=== PATIENT | female | born 1975 | race Caucasian/White ===

== ENCOUNTER 2019-12-28 17:00 | Emergency (ER) | payer BC, SELFPAY ==
[2019-12-28 17:07] VITALS: BMI 282.2
[2019-12-28 17:10] VITALS: BP 174/99; PULSE 146; RESP 20; TEMP 36.7; O2SAT 100
--- NOTE | 2019-12-28 17:11 | XR_ITS ---
WS: [id number] XR chest 1V portable [id number] REASON FOR EXAM: SOB FINDINGS: Comparisons were made to 07/23/2017. The heart is normal. The lung allen are well aerated. No pneumonia, pleural effusion, pulmonary edema, pneumothorax, or m ass effect. The hilum and apices normal. No osseous abnormalities. XR/XR chest 1V portable [id number] IMPRESSION: Negative chest unchanged since 07/23/2017
--- NOTE | 2019-12-28 17:20 | W.ED.SOB ---
HPI - SOB/Dyspnea General: Chief Complaint: Shortness of Breath/Dyspnea Stated Complaint: high hr/sob Time Seen by Provider: 12/28/19 17:11 History of Present Illness: HPI Narrative: Patient is a 44-year-old female comes to the ED with shortness of breath and elevated heart rate. Past medical history of hypothyroidism. Patient states that all throughout today whenever she gets up and moves around she feels her heart racing and then has also had some moments of shortness of breath during this time. When she stopped and rested the shortness of breath would go away but the elevated heart rate would still be there and then slowly decrease. She also says during the times her heart rate elevates she experiences some mild chest discomfort. Patient says that her normal resting heart rate is usually in the 70 beats per minute range. Denies cough and has no history of blood clots. Patient states she is has no known heart issues. Patient says she has had a panic attack in the past before, but this does not feel anything like that. She also says she currently is not dealing with any stress or worries during this time to cause any anxiety or panic attack. Associated symptoms: Reports chest pain (mild discomfort) and palpitations; Deny abdominal pain, fever(s), nausea, orthopnea or vomiting Review of Systems Const: Denies: fever, chills or fatigue Eyes: Denies: change in vision or eye discomfort ENMT: Denies: throat pain, painful swallowing, nasal discharge or nasal congestion Card: Reports: chest pain (mild discomfort), palpitations and shortness of breath on exertion; Denies: edema, swelling of feet/ankles or shortness of breath when lying down Resp: Reports: shortness of breath (on exertion then improves when she rests.); Denies: productive cough or non-productive cough GI: Denies: abdominal pain, nausea, vomiting, diarrhea, constipation or blood in stool : Denies: flank pain, painful urination or blood in urine Musc: Denies: neck pain, back pain or extremity swelling Skin/Breast: Denies: rash or new lesion Neuro: Denies: headache, numbness in extremities or weakness in extremities PFS ED PFSH: Medical History Breast swelling (05/15/19) Patient reporting an increase in left breast size compared to in the past. States noticed due to broad and not fitting appropriately. Denied feeling any masses. Denied pain or tenderness. Denied injuries to breast. Had normal mammogram in 07/2018. Based on exam today, left breast appears to be slightly larger than right. No masses, tenderness, skin changes noted on exam. Discussed with patient that this may be normal changes that can happen over time. Discussed with her this is unlikely to be a worrisome change. However, I do recommend that she continue to monitor this and if she continues to notice the left breast enlarging, she needs to return for another evaluation. -Patient due for wellness visit in July. We'll reassess at that time. Hypothyroidism (~2013) Surgical History H/O section (08/05/08) Performed by Dr. Abdi at [facility] in [place], [place]. Had hemorrhage treated with exploratory laparotomy with ligation of vessels and then return to the OR for hysterectomy due to continued bleeding. H/O exploratory laparotomy (08/05/08) With Uterine Vessel Ligation Diagnosis: Postoperative hemorrhage with broad ligament hematoma. Performed by Dr. Smalls at [facility] in [place], [place]. History of section (09/20/02) 09/20/2002 Comments: Diagnosis: Cephalopelvic disproportion. Performed in [place], [place] History of hysterectomy (08/05/18) Post hysterectomy. Diagnosis: hemorrhage, Broad ligament hematoma, Uterine vessel laceration. Performed by Dr. Smalls at [facility] in [place], [place]. Family History Mother Squamous cell carcinoma Grandmother Lymphoma MATERNAL Heart disease PATERNAL Hypertension PATERNAL Family history of thyroid problem PATERNAL Hypercholesteremia PATERNAL Grandfather Prostate cancer MATERNAL Father Heart disease Hypertension Social History Smoking and tobacco status: never smoked Physical Exam Const: COMMON NORMALS: no apparent distress, oriented x3, healthy appearing and alert GENERAL APPEARANCE: cooperative and comfortable HENMT: COMMON NORMALS: normocephalic HEAD & SCALP: normocephalic MOUTH: oral and palatal mucosa normal THROAT: posterior oropharynx normal and uvula midline Eye: COMMON NORMALS: PERRL PUPIL: Yes PERRL Neck/C-Spine: COMMON NORMALS: supple GENERAL: Yes normal visual inspection Resp: COMMON NORMALS: normal respiratory effort, no retractions, no use of accessory muscles and clear to auscultation bilaterally AUSCULTATION: clear to auscultation bilaterally Cardio: COMMON NORMALS: regular rhythm, S1 normal heart sound, S2 normal heart sound, no gallops, no clicks, no murmurs and peripheral pulses 2+ throughout RATE: tachycardic RHYTHM: regular rhythm HEART SOUNDS: S1 normal and S2 normal PERIPHERAL PULSES: pulses 2+ throughout GI: COMMON NORMALS: normal to inspection, nondistended, normoactive bowel sounds, soft to palpation, non-tender and no masses PALPATION: Yes soft : COMMON NORMALS: Yes no CVA tenderness BLADDER/KIDNEY EXAM: Yes no CVA tenderness Back/Pelvis: COMMON NORMALS: no CVA tenderness Extremity: COMMON NORMALS: normal to inspection and no pedal edema Neuro: COMMON NORMALS: oriented x3 and moves all extremities SENSORIUM/ORIENTATION: Yes alert Skin: COMMON NORMALS: no rashes or lesions noted GENERAL SKIN EXAM: no rashes or lesions noted and dry skin Course Vital Signs: Vital signs: Vital Signs Temperature 98.0 F 12/28/19 17:10 Pulse Rate 78 12/28/19 21:07 Respiratory Rate 16 12/28/19 21:07 Blood Pressure 132/78 12/28/19 21:07 Pulse Oximetry 99 12/28/19 21:07 MDM - SOB/Dyspnea MDM Narrative: Medical decision making narrative: Patient is a 44-year-old female who comes to the ED with elevated heart rate, mild chest discomfort and some shortness of breath. Patient's heart rate while in the ED would sit in the 110 bpm range and then elevate to 120 to 140 bpm range when she would get up and walk to the bathroom. EKG showed sinus tachycardia, with no ST elevation or depression. Troponins were negative. TSH 2.17. Chest x-ray showed no acute findings. CBC and CMP were unremarkable. D-dimer was elevated to 20. CTA of chest was performed and showed no PE or any other acute findings. Patient was given a dose of IV metoprolol while here in the ED and her heart rate decreased and patient started feeling more comfortable. Patient diagnosed with sinus tachycardia. Before discharge patient's heart rate went back to her normal range and was at 78 bpm. Patient was feeling better and not having any symptoms. Patient was sent home with prescription for metoprolol and cardiology referral was placed with case management. Patient was told if she is having any other symptoms to return to ED for reevaluation. Patient understood and agreed with plan. Dr. Johns reviewed this case and helped with some clinical decision making. Lab Data: Attestation: I reviewed the patient's lab results. Labs: Lab Results 12/28/19 12/28/19 12/28/19 Range/Units 17:19 17:19 17:19 WBC (4.0-10.0) 10^3/ uL RBC (4.1-5.3) 10^6/u L Hgb (11.5-15.3) g/dL Hct (37.0-47.0) % MCV (81-99) fL MCH (28.0-34.0) pg MCHC (30.0-36.0) g/dL RDW (12.1-15.1) % Plt Count (130-400) 10^3/c mm MPV (7.4-10.4) fL Neut % (Auto) % Lymph % (Auto) % Grand % (Auto) % Eos % (Auto) % Baso % (Auto) % Neut # (Auto) (1.8-7.7) 10^3/u L Lymph # (Auto) (0.8-4.8) 10^3/u L Grand # (Auto) (0.2-0.9) 10^3/u L Eos # (Auto) (0.0-0.8) 10^3/u L Baso # (Auto) (0.0-0.1) 10^3/u L Nucleated RBC % (a uto) % Nucleated RBCs # /100WBC D-Dimer (0-0.59) ug/mIFE U Sodium 142 (136-145) mmol/L Potassium 3.4 L (3.5-5.1) mmol/L Chloride 104 (98-107) mmol/L Carbon Dioxide 19 L (22-29) mmol/L Anion Gap 22.4 H (5-19) BUN 11 (6-20) mg/dL Creatinine 0.8 (0.5-0.9) mg/dL GFR Calculation 78.7 L (90-130) mL/min Glucose 113 (65-115) mg/dL Calculated Osmolal ity 291 (285-295) mOsm/k g Calcium 9.6 (8.5-10.5) mg/dL Total Bilirubin 0.3 (0.15-1.2) mg/dL AST 26 (0-32) U/L ALT 37 H (0-33) U/L Alkaline Phosphata se 61 (35-105) IU/L Troponin T Baselin e < 6 (0-10) ng/mL Troponin T 120 Min [place] (0-10) ng/mL Delta Troponin T (0-10) ABS# Total Protein 8.0 (6.6-8.7) g/dL Albumin 5.1 (3.5-5.2) g/dL Globulin 2.9 (1.3-4.6) g/dL TSH 2.17 (0.27-4.20) uIU/ mL HCG, Qual Negative (Negative) Urine Color (Yellow) Urine Appearance (CLEAR) Urine pH (5-7) Ur Specific Gravit y (1.005-1.030) Urine Protein (Negative) Urine Glucose (UA) (Normal) Urine Ketones (Negative) Urine Blood (Negative) Urine Nitrate (Negative) Urine Bilirubin (NEGATIVE) Urine Urobilinogen (Negative) mg/dL Ur Leukocyte Jeri ase (Negative) Urine RBC (0-2) /hpf Urine WBC (0-5) /hpf Ur Squamous Epith Cells (0-5) Urine Bacteria (NONE) 12/28/19 12/28/19 12/28/19 Range/Units 17:19 17:50 18:18 WBC 8.4 (4.0-10.0) 10^3/ uL RBC 5.21 (4.1-5.3) 10^6/u L Hgb 15.5 H (11.5-15.3) g/dL Hct 47.2 H (37.0-47.0) % MCV 90.6 (81-99) fL MCH 29.8 (28.0-34.0) pg MCHC 32.8 (30.0-36.0) g/dL RDW 11.9 L (12.1-15.1) % Plt Count 301 (130-400) 10^3/c mm MPV 9.7 (7.4-10.4) fL Neut % (Auto) 73.6 % Lymph % (Auto) 18.6 % Grand % (Auto) 6.2 % Eos % (Auto) 0.6 % Baso % (Auto) 0.5 % Neut # (Auto) 6.2 (1.8-7.7) 10^3/u L Lymph # (Auto) 1.6 (0.8-4.8) 10^3/u L Grand # (Auto) 0.5 (0.2-0.9) 10^3/u L Eos # (Auto) 0.1 (0.0-0.8) 10^3/u L Baso # (Auto) 0.0 (0.0-0.1) 10^3/u L Nucleated RBC % (a uto) 0 % Nucleated RBCs # 0.0 /100WBC D-Dimer >= 20.00 H (0-0.59) ug/mIFE U Sodium (136-145) mmol/L Potassium (3.5-5.1) mmol/L Chloride (98-107) mmol/L Carbon Dioxide (22-29) mmol/L Anion Gap (5-19) BUN (6-20) mg/dL Creatinine (0.5-0.9) mg/dL GFR Calculation (90-130) mL/min Glucose (65-115) mg/dL Calculated Osmolal ity (285-295) mOsm/k g Calcium (8.5-10.5) mg/dL Total Bilirubin (0.15-1.2) mg/dL AST (0-32) U/L ALT (0-33) U/L Alkaline Phosphata se (35-105) IU/L Troponin T Baselin e (0-10) ng/mL Troponin T 120 Min [place] (0-10) ng/mL Delta Troponin T (0-10) ABS# Total Protein (6.6-8.7) g/dL Albumin (3.5-5.2) g/dL Globulin (1.3-4.6) g/dL TSH (0.27-4.20) uIU/ mL HCG, Qual (Negative) Urine Color Yellow (Yellow) Urine Appearance Clear (CLEAR) Urine pH 7 (5-7) Ur Specific Gravit y 1.005 (1.005-1.030) Urine Protein Neg (Negative) Urine Glucose (UA) Norm (Normal) Urine Ketones Negative (Negative) Urine Blood Neg (Negative) Urine Nitrate Negative (Negative) Urine Bilirubin Neg (NEGATIVE) Urine Urobilinogen Norm (Negative) mg/dL Ur Leukocyte Jeri ase Negative (Negative) Urine RBC 0-4 H (0-2) /hpf Urine WBC 0-4 H (0-5) /hpf Ur Squamous Epith Cells 0-4 H (0-5) Urine Bacteria Trace (NONE) 12/28/19 Range/Units 19:00 WBC (4.0-10.0) 10^3/ uL RBC (4.1-5.3) 10^6/u L Hgb (11.5-15.3) g/dL Hct (37.0-47.0) % MCV (81-99) fL MCH (28.0-34.0) pg MCHC (30.0-36.0) g/dL RDW (12.1-15.1) % Plt Count (130-400) 10^3/c mm MPV (7.4-10.4) fL Neut % (Auto) % Lymph % (Auto) % Grand % (Auto) % Eos % (Auto) % Baso % (Auto) % Neut # (Auto) (1.8-7.7) 10^3/u L Lymph # (Auto) (0.8-4.8) 10^3/u L Grand # (Auto) (0.2-0.9) 10^3/u L Eos # (Auto) (0.0-0.8) 10^3/u L Baso # (Auto) (0.0-0.1) 10^3/u L Nucleated RBC % (a uto) % Nucleated RBCs # /100WBC D-Dimer (0-0.59) ug/mIFE U Sodium (136-145) mmol/L Potassium (3.5-5.1) mmol/L Chloride (98-107) mmol/L Carbon Dioxide (22-29) mmol/L Anion Gap (5-19) BUN (6-20) mg/dL Creatinine (0.5-0.9) mg/dL GFR Calculation (90-130) mL/min Glucose (65-115) mg/dL Calculated Osmolal ity (285-295) mOsm/k g Calcium (8.5-10.5) mg/dL Total Bilirubin (0.15-1.2) mg/dL AST (0-32) U/L ALT (0-33) U/L Alkaline Phosphata se (35-105) IU/L Troponin T Baselin e (0-10) ng/mL Troponin T 120 Min [place] 6.78 (0-10) ng/mL Delta Troponin T 0.29828 (0-10) ABS# Total Protein (6.6-8.7) g/dL Albumin (3.5-5.2) g/dL Globulin (1.3-4.6) g/dL TSH (0.27-4.20) uIU/ mL HCG, Qual (Negative) Urine Color (Yellow) Urine Appearance (CLEAR) Urine pH (5-7) Ur Specific Gravit y (1.005-1.030) Urine Protein (Negative) Urine Glucose (UA) (Normal) Urine Ketones (Negative) Urine Blood (Negative) Urine Nitrate (Negative) Urine Bilirubin (NEGATIVE) Urine Urobilinogen (Negative) mg/dL Ur Leukocyte Jeri ase (Negative) Urine RBC (0-2) /hpf Urine WBC (0-5) /hpf Ur Squamous Epith Cells (0-5) Urine Bacteria (NONE) Imaging Data^: CXR: Attestation: I personally reviewed and interpreted this imaging study as follows: My impression: No acute findings. Pending final radiology report. CT Chest: Attestation: I personally reviewed and interpreted this imaging study as follows: Radiologist's impression: [address] [address] [address] Scan Report Signed Patient: Lisa Rebolledo Unit #: [id number] : 1975 Age/Sex: 44 / F ADM Date: 12/28/19 Loc: ER Room/Bed: Attending Dr: Ordering Provider/Ordering MD: Yayo Darnell Date of Service: 12/28/19 Procedure(s): CT angio chest PE protcl [id number] Accession Number(s): [id number] Report Number: [id number] PROCEDURE INFORMATION: Exam: CT Angiography Chest With Contrast Exam date and time: 12/28/2019 7:04 PM Age: 44 years old Clinical indication: Shortness of breath; Patient HX: C/O sudden onset SOB w rapid hr; Additional info: SOB and tachycardia TECHNIQUE: Imaging protocol: Computed tomographic angiography of the chest with intravenous contrast. 3D rendering: MIP and/or 3D reconstructed images were created by the technologist. Radiation optimization: All CT scans at this facility use at least one of these dose optimization techniques: automated exposure control; mA and/or kV adjustment per patient size (includes targeted exams where dose is matched to clinical indication); or iterative reconstruction. Contrast material: OMNI 350; Contrast volume: 95 ml; Contrast route: 20G; COMPARISON: CT chest w con* [id number] 09/06/2018 8:52 AM FINDINGS: There are degenerative changes of the spine. There is minimal dependent atelectasis. There is no focal consolidation. There is no pleural effusion. There is no pneumothorax. There is a calcified granuloma within the right upper lobe. There are no suspicious pulmonary nodules. The central airways are normal in caliber. The thyroid gland is unremarkable. There is no axillary adenopathy. There is no mediastinal adenopathy. There is no hilar adenopathy. Interrogation of the pulmonary arteries in multiple planes shows no evidence for pulmonary embolism. The aorta is normal in caliber with no evidence for aneurysm or dissection. The heart is normal in size. There is no evidence for right heart failure. The upper abdominal structures are unremarkable. CT/CT angio chest PE protcl [id number] IMPRESSION: 1. No evidence for pulmonary embolism. 2. No focal infiltrates. Radiation Dose CTDIVOL = (mGy): DLP = 541.57 (mGy-cm) Dictated By: Italo Conrad MD Signed By: Italo Conrad MD Signed Date/Time: 12/28/191958 DD/ 56 EKG Data^: EKG 1: Attestation: I personally reviewed and interpreted this EKG as follows: EKG Interpretation Date: 12/28/19 Interpretation: Sinus tachycardia. Ventricular rate of 117 bpm, P waves present, no ST segment elevation pr depression seen. Discharge Plan Discharge Patient Disposition: Home, Self-Care Clinical Impression: Sinus tachycardia Condition: Stable Prescriptions: New metoprolol succinate 25 mg tablet extended release 24 hr 25 mg PO DAILY Qty: 30 RF: 0 No Action liothyronine 5 mcg tablet 2.5 mcg PO QDAY RF: 0 ibuprofen [Advil] 200 mg tablet 800 mg PO Q6H PRNRF: 0 Discharge Orders: Discharge Order (Routine); Ordered 12/28/19 Ordered By: Yayo Darnell Referrals: Mack Rust MD [Primary Care Provider] - Discharge Diet: Regular Discharge Activity: Increase activity as tolerated Activity Restrictions/Additional Instructions: [facility] cardiology office should be contacting you in the next several days to set up an appointment. Take the metoprolol as prescribed. If you start having any new chest pain or shortness of breath return to the ED for reevaluation. Discharge Date/Time: 12/28/19 21:09 Coding Level of Care Code ED Stage Set Up Worker for Ina Fwjakbu Exam Comprehensive
[2019-12-28 17:48] LABS: HCG, Serum Qual Negative (Negative)
[2019-12-28 17:54] LABS: Basophils % 0.5 %; Eosinophils # 0.1 10^3/uL (0.0-0.8); Eosinophils % 0.6 %; Hematocrit 47.2 % (37.0-47.0); Hemoglobin 15.5 g/dL (11.5-15.3); Lymphocytes # 1.6 10^3/uL (0.8-4.8); Lymphocytes % 18.6 %; Mean Corpuscular HGB Conc 32.8 g/dL (30.0-36.0); Mean Corpuscular Hemoglobin 29.8 pg (28.0-34.0); Mean Corpuscular Volume 90.6 fL (81-99); Mean Platelet Volume 9.7 fL (7.4-10.4); Monocytes # 0.5 10^3/uL (0.2-0.9); Monocytes % 6.2 %; Neutrophils # 6.2 10^3/uL (1.8-7.7); Neutrophils % 73.6 %; Nucleated Red Blood Cells % 0 %; Platelet Count 301 10^3/cmm (130-400); Red Blood Count 5.21 10^6/uL (4.1-5.3); Red Cell Distribution Width 11.9 % (12.1-15.1); White Blood Count 8.4 10^3/uL (4.0-10.0)
[2019-12-28 18:01] LABS: Alanine Aminotransferase 37 U/L (0-33); Albumin Level 5.1 g/dL (3.5-5.2); Alkaline Phosphatase 61 IU/L (35-105); Anion Gap 22.4 (5-19); Aspartate Amino Transferase 26 U/L (0-32); Blood Urea Nitrogen 11 mg/dL (6-20); Calcium 9.6 mg/dL (8.5-10.5); Carbon Dioxide 19 mmol/L (22-29); Chloride 104 mmol/L (98-107); Globulin 2.9 g/dL (1.3-4.6); Glomerular Filtration Rate 78.7 mL/min (90-130); Glucose 113 mg/dL (65-115); Osmolality Calculated 291 mOsm/kg (285-295); Potassium 3.4 mmol/L (3.5-5.1); Sodium 142 mmol/L (136-145); Thyroid Stimulating Hormone 2.17 uIU/mL (0.27-4.20); Total Bilirubin 0.3 mg/dL (0.15-1.2)
[2019-12-28 18:22] LABS: Troponin(5th) Baseline < 6 ng/mL (0-10)
[2019-12-28 18:39] VITALS: BP 166/99; PULSE 138; RESP 16; O2SAT 99
--- NOTE | 2019-12-28 18:46 | CTR_ITS ---
PROCEDURE INFORMATION: Exam: CT Angiography Chest With Contrast Exam date and time: 12/28/2019 7:04 PM Age: 44 years old Clinical indication: Shortness of breath; Patient HX: C/O sudden onset SOB w rapid hr; Additional info: SOB and tachycardia TECHNIQUE: Imaging protocol: Computed tomographic angiography of the chest with intravenous contrast. 3D rendering: MIP and/or 3D reconstructed images were created by the technologist. Radiation optimization: All CT scans at this facility use at least one of these dose optimization techniques: automated exposure control; mA and/or kV adjustment per patient size (includes targeted exams where dose is matched to clinical indication); or iterative reconstruction. Contrast material: OMNI 350; Contrast volume: 95 ml; Contrast route: 20G; COMPARISON: CT chest w con* [id number] 09/06/2018 8:52 AM FINDINGS: There are degenerative changes of the spine. There is minimal dependent atelectasis. There is no focal consolidation. There is no pleural effusion. There is no pneumothorax. There is a calcified granuloma within the right upper lobe. There are no suspicious pulmonary nodules. The central airways are normal in caliber. The thyroid gland is unremarkable. There is no axillary adenopathy. There is no mediastinal adenopathy. There is no hilar adenopathy. Interrogation of the pulmonary arteries in multiple planes shows no evidence for pulmonary embolism. The aorta is normal in caliber with no evidence for aneurysm or dissection. The heart is normal in size. There is no evidence for right heart failure. The upper abdominal structures are unremarkable. CT/CT angio chest PE protcl [id number] IMPRESSION: 1. No evidence for pulmonary embolism. 2. No focal infiltrates. Radiation Dose CTDIVOL = (mGy): DLP = 541.57 (mGy-cm)
[2019-12-28 19:03] LABS: Bilirubin Urine Neg (NEGATIVE); Blood Urine Neg (Negative); Glucose Urine UA Norm (Normal); Ketones Urine Negative (Negative); Leukocyte Esterase Urine Negative (Negative); Nitrate Urine Negative (Negative); Protein Urine Neg (Negative); Specific Gravity, Urine 1.005 (1.005-1.030); Urine Appearance Clear (CLEAR); Urine Color Yellow (Yellow); Urobilinogen Urine Norm (Negative); pH Urine 7 (5-7)
[2019-12-28] MEDS: sodium chloride 0.9% 1,000 ML 999 ML IV (19:03)
[2019-12-28] MEDS: metoprolol tartrate 1 mg/1 mL SDV 5 mL 5 MG IV (19:03)
[2019-12-28 19:08] LABS: RBC Urine 0-4 /hpf (0-2); Squamous Epithelial Cell Urine 0-4 (0-5); WBC Urine 0-4 /hpf (0-5)
[2019-12-28 19:09] LABS: Add Urine Culture? No; Bacteria Urine TRACE
--- NOTE | 2019-12-28 19:12 | ECG_ITS ---
Measurements Intervals [place] Rate: 117 P: 55 [place]: 140 QRS: 36 QRSD: 98 T: 23 QT: 351 QTc: [address] DEPRESSION [0.025+ mV ST DEPRESSION] ABNORMAL RHYTHM ECG No previous ECG available for comparison Electronically Signed On 12-29-2019 18:25:26 CDT by Damaris Blackmon M.D. [email or web address]
[2019-12-28 19:20] VITALS: BP 170/107; PULSE 108; RESP 13; O2SAT 100
[2019-12-28 19:20] LABS: D Dimer >= 20.00 ug/mIFEU (0-0.59)
[2019-12-28 19:26] LABS: Troponin 5 2HR 6.78 ng/mL (0-10); Troponin 5 2HR Delta 0.78001 ABS# (0-10)
[2019-12-28 19:30] VITALS: BP 169/109; PULSE 112; RESP 15; O2SAT 100
[2019-12-28] MEDS: iohexol 350 mg/mL 100 mL Btl IV (19:46)
[2019-12-28 20:00] VITALS: BP 145/104; PULSE 100; RESP 16; O2SAT 99
[2019-12-28 21:07] VITALS: BP 132/78; PULSE 78; RESP 16; O2SAT 99
--- NOTE | 2019-12-30 12:35 | DCPLANNER ---
solution manager had message to schedule a follow up appointment for patient with [facility]. solution manager called [facility], spoke with Evelyn, a follow up appointment was scheduled for Monday, January 06, 2020 at 10:00 with Fabiola Singh. solution manager called patient and informed patient of the scheduled appointment.
--- NOTE | 2020-01-13 14:59 | DCPLANNER ---
Patient did attend appointment scheduled for 01.06.20 with [facility].
== END 2019-12-28 21:09 | disposition home or self-care (01) ==
PROVIDERS: Emergency Provider Physician Assistant; Family Provider Family Medicine; PCP Family Medicine
DX: R00.0 Tachycardia, unspecified (principal)
CPT/HCPCS: 12345; 36415; 71045; 71275; 80053; 81001; 84443; 84484; 84703; 85025; 85378; 87040; 93005; 96361; 96374; 99283; 99284; A9270; J3490; J7030; Q9967

== ENCOUNTER 2020-03-15 06:56 | Outpatient (CLI) | payer BC, SELFPAY ==
--- NOTE | 2020-03-15 07:06 | USCV_ITS ---
Lisa Rebolledo Age: 45 Gender: F : 1975 Exam Date: 03/15/2020 07:17 Ordering Phys: Fabiola Singh Technologist: Vinicio Quinones Exam Location: [facility] [place] Indication: ABNORMAL HEART BEAT BP: 120 / 80 HR: 78 Rhythm: Sinus Technical Quality: Suboptimal MEASUREMENTS (Male / Female) Normal Values 2D ECHO LV Diastolic Diameter PLAX 4.4 cm 4.2 - 5.9 / 3.9 - 5.3 cm LV Systolic Diameter PLAX 2.5 cm IVS Diastolic Thickness 1.1 cm 0.6 - 1.0 / 0.6 - 0.9 cm IVS Systolic Thickness 1.1 cm LVPW Diastolic Thickness 1.1 cm 0.6 - 1.0 / 0.6 - 0.9 cm LVPW Systolic Thickness 1.2 cm LVOT Diameter 2.1 cm LV Ejection Fraction 2D Teich 75.7 % LV Ejection Fraction MOD 2C 51.7 % LV Ejection Fraction 2C AL 52.0 % LA Diameter 3.3 cm LA Width 3.7 cm LA Height 3.8 cm RA Width 3.3 cm RA Height 3.6 cm Aorta at Sinotubular Diameter 2.9 cm M-MODE LV Diastolic Diameter MM 4.6 cm 4.2 - 5.9 / 3.9 - 5.3 cm LV Systolic Diameter MM 3.0 cm LV Ejection Fraction MM Teich 65.9 % IVS Diastolic Thickness MM 0.9 cm 0.6 - 1.0 / 0.6 - 0.9 cm IVS Systolic Thickness MM 1.7 cm LVPW Diastolic Thickness MM 1.1 cm 0.6 - 1.0 / 0.6 - 0.9 cm LVPW Systolic Thickness MM 1.6 cm RV Diastolic Diameter MM 2.1 cm Aortic Annulus Diameter 3.0 cm LA Ao Ratio MM 1.1 MV E Point Septal Separation 0.5 cm DOPPLER AV Peak Velocity 110.0 cm/s LVOT Peak Velocity 108.0 cm/s AV Area Cont Eq vti 3.1 cm squared AV Area Cont Eq pk 3.5 cm squared MV Area PHT 5.0 cm squared Mitral E to A Ratio 1.4 MV E' Velocity 17.0 cm/s Mitral E to MV E' Ratio 6.9 Mitral E to LV E' Lateral Ratio 5.8 Mitral E to LV E' Septal Ratio 8.6 TR Peak Velocity 266.0 cm/s TR Peak Gradient 28.2 mmHg TV Peak E Velocity 89.0 cm/s Right Atrial Pressure 3.0 mmHg Pulmonary Artery Systolic Pressu 31.3 mmHg FINDINGS Left Ventricle Normal left ventricular size, systolic function and wall thickness, with no regional wall motion abnormalities. Normal left ventricular wall thickness. Normal diastolic filling pattern. Left ventricular ejection fraction is estimated at 60 %. Right Ventricle The right ventricle is normal in size and function. Right Atrium The right atrium is normal in size. Left Atrium The left atrium is normal in size. Mitral Valve Structurally normal mitral valve without significant stenosis or prolapse. There is no mitral regurgitation. Aortic Valve Structurally normal aortic valve without significant sclerosis or stenosis. There is no aortic regurgitation. Tricuspid Valve Structurally normal tricuspid valve without significant stenosis or regurgitation. Pulmonary artery systolic pressure is normal. Pulmonic Valve Structurally normal pulmonic valve without significant stenosis. There is no pulmonic regurgitation. Pericardium Normal pericardium without effusion. Aorta Normal ascending aorta dimension. CONCLUSIONS Normal transthoracic echocardiogram. No change from 11/23/2014 Dr. Maurice Gutierrez MD (Electronically Signed) Final Date: 15 March 2020 09:26 S
== END 2020-03-15 06:57 | disposition home or self-care (01) ==
PROVIDERS: Family Provider Family Medicine; PCP Family Medicine; Visit Provider Nurse Practitioner Family
DX: R00.0 Tachycardia, unspecified (principal); R00.8 Other abnormalities of heart beat
CPT/HCPCS: 93306

== ENCOUNTER 2021-05-04 14:25 | Day surgery (SDC) | payer OTHER, SELFPAY ==
[2021-05-04] VITALS (13 sets, daily range): BP systolic 102–165; BP diastolic 70–106; PULSE 90–116; RESP 9–25; TEMP 36.3–36.8; O2SAT 91–99; BMI 29.0
--- NOTE | 2021-05-04 | SCC_ITS ---
Procedure Done: 1. Cystoscopy with left retrograde ureteropyelogram 2. LEFT ureterorenoscopy with laser lithotripsy 3. LEFT ureteral stent (6 [place]ian by 26 cm double-pigtail without string) 48.8 seconds of fluoroscopic guidance, for a cumulative dose of 5.97 mGy, was provided to Dr. Butler by the radiology department. C-arm images of the abdomen were saved for the patient's permanent record. CHALOD
--- NOTE | 2021-05-04 14:39 | W.ED.BACK ---
Documented by User: DORCAS Price 05/05/21 07:06 HPI - Back Pain/Injury General: Chief Complaint: Back Pain/Injury Stated Complaint: Back Pain Time Seen by Provider: 05/04/21 14:39 Source: patient Mode of arrival: ambulatory Limitations: no limitations History of Present Illness: HPI Narrative: Patient is a nice 46-year-old female who presents to ED today with a complaint of left flank/back pain that began initially 2 to 3 days ago. She states pain came on fairly suddenly while at rest. She states pain has been fairly persistent but states today it became excruciating. She was seen at a walk-in facility earlier this morning and prescribed muscle relaxers and anti-inflammatories for presumed musculoskeletal strain. She states these medications have not helped her discomfort at all. She has no history of nephroureterolithiasis. She is not complaining of dysuria, frequency, hematuria, urgency. No fever/chills. No radicular symptoms. Does report 2 episodes of vomiting secondary to pain. MD elicited complaint: back pain Onset (ago): day(s) Timing: constant Severity: severe Similar Symptoms Previously: No Quality: sharp Location: left flank Radiation: abdomen Exacerbating factors: none Relieving factors: none Associated symptoms: Reports abdominal pain (states flank pain will sometimes radiate into abdomen), nausea and vomiting; Deny chills, dysuria, fatigue, fever(s) or urinary urgency Work related injury: No Review of Systems Const: Denies: fever(s), chills, body aches, fatigue or malaise Card: Denies: chest pain Resp: Denies: dyspnea GI: Reports: abdominal pain (states flank pain will sometimes radiate into abdomen), nausea and vomiting; Denies: hematemesis : Reports: flank pain; Denies: difficulty voiding, dysuria, urinary frequency, urinary urgency or urinary hesitancy Musc: Reports: back pain; Denies: neck pain or extremity pain Skin/Breast: Denies: rash Neuro: Denies: headache(s), numbness in extremities, weakness in extremities or sensory changes [facility] ED PFSH: Medical History (Updated 05/04/21 @ 18:53 by Jeff Butler MD) Breast swelling (05/15/19) Patient reporting an increase in left breast size compared to in the past. States noticed due to broad and not fitting appropriately. Denied feeling any masses. Denied pain or tenderness. Denied injuries to breast. Had normal mammogram in 07/2018. Based on exam today, left breast appears to be slightly larger than right. No masses, tenderness, skin changes noted on exam. Discussed with patient that this may be normal changes that can happen over time. Discussed with her this is unlikely to be a worrisome change. However, I do recommend that she continue to monitor this and if she continues to notice the left breast enlarging, she needs to return for another evaluation. -Patient due for wellness visit in July. We'll reassess at that time. Hypothyroidism (~2013) Surgical History H/O section (08/05/08) Performed by Dr. Abdi at [facility] in [place], [place]. Had hemorrhage treated with exploratory laparotomy with ligation of vessels and then return to the OR for hysterectomy due to continued bleeding. H/O exploratory laparotomy (08/05/08) With Uterine Vessel Ligation Diagnosis: Postoperative hemorrhage with broad ligament hematoma. Performed by Dr. Smalls at [facility] in [place], [place]. History of section (09/20/02) 09/20/2002 Comments: Diagnosis: Cephalopelvic disproportion. Performed in [place], [place] History of hysterectomy (08/05/18) Post hysterectomy. Diagnosis: hemorrhage, Broad ligament hematoma, Uterine vessel laceration. Performed by Dr. Smalls at [facility] in [place], [place]. Family History Mother Squamous cell carcinoma Grandmother Lymphoma MATERNAL Heart disease PATERNAL Hypertension PATERNAL Family history of thyroid problem PATERNAL Hypercholesteremia PATERNAL Grandfather Prostate cancer MATERNAL Father Heart disease Hypertension Social History Smoking and tobacco status: never smoked Physical Exam Const: COMMON NORMALS: average body habitus, patient oriented x3, no limitations, healthy appearing, alert and well nourished GENERAL APPEARANCE: cooperative and in distress (appears uncomfortable; pacing) ORIENTATION/CONSCIOUSNESS: Yes awake, Yes oriented to person, Yes oriented to place and Yes oriented to time HENMT: COMMON NORMALS: normocephalic and atraumatic HEAD & SCALP: normocephalic and atraumatic Resp: COMMON NORMALS: normal respiratory effort and clear to auscultation bilaterally AUSCULTATION: clear to auscultation bilaterally Cardio: COMMON NORMALS: regular rate and regular rhythm RATE: regular rate RHYTHM: regular rhythm GI: COMMON NORMALS: Normal to inspection, nondistended, normoactive bowel sounds present, Soft to palpation, non-tender, No hepatosplenomegaly present and no masses PALPATION: Yes Soft to palpation and Yes No hepatosplenomegaly present : OTHER: points to pain around her L CVA but palpation does not seem to directly elicit pain Neuro: COMMON NORMALS: patient oriented x3 SENSORIUM/ORIENTATION: Yes alert, Yes oriented to person, Yes oriented to place and Yes oriented to time Course ED course: Patient requiring multiple doses of pain medications and still in significant discomfort. Patient has large 8mm proximal ureter stone. Will consult with Dr. Butler but plan will most likely be to admit secondary to her pain not being manageable here. Consultations: Consultation #1: Dr. Butler-recommends admission with plan for ureter stent tomorrow (patient requesting stent tonight-he states he will check into possibility for this); states I can give toradol as this is only contraindicated for lithotripsy Vital Signs: Vital signs: Vital Signs Temperature 97.4 F L 05/04/21 21:55 Pulse Rate 115 H 05/04/21 21:19 Respiratory Rate 15 05/04/21 21:19 Blood Pressure 144/98 05/04/21 21:19 Pulse Oximetry 97 05/04/21 21:19 MDM - Back Pain/Injury Lab Data: Attestation: I reviewed the patient's lab results. Labs: Lab Results 05/04/21 05/04/21 05/04/21 Range/Units 14:54 15:23 15:23 WBC 15.6 H (4.0-10.0) 10^3/ uL RBC 4.99 (4.1-5.3) 10^6/u L Hgb 14.9 (11.5-15.3) g/dL Hct 43.4 (37.0-47.0) % MCV 87.0 (81-99) fl MCH 29.9 (28.0-34.0) pg MCHC 34.3 (30.0-36.0) g/dL RDW 11.9 L (12.1-15.1) % Plt Count 354 (130-400) 10^3/c mm MPV 9.8 (7.4-10.4) fL Neut % (Auto) 92.3 % Lymph % (Auto) 4.8 % Barbour % (Auto) 2.1 % Eos % (Auto) 0.0 % Baso % (Auto) 0.4 % Neut # (Auto) 14.37 H (1.8-7.7) 10^3/u L Lymph # (Auto) 0.8 (0.8-4.8) 10^3/u L Barbour # (Auto) 0.3 (0.2-0.9) 10^3/u L Eos # (Auto) 0.0 (0.0-0.8) 10^3/u L Baso # (Auto) 0.1 (0.0-0.1) 10^3/u L Nucleated RBC % (a uto) 0 % Nucleated RBCs # 0.0 /100WBC Sodium 139 (136-145) mmol/L Potassium 3.9 (3.5-5.1) mmol/L Chloride 102 (98-107) mmol/L Carbon Dioxide 21 L (22-29) mmol/L Anion Gap 19.9 H (5-19) BUN 14 (6-20) mg/dL Creatinine 0.9 (0.5-0.9) mg/dL GFR Calculation 68.0 L (90-130) mL/min Glucose 113 (65-115) mg/dL Calculated Osmolal ity 289 (285-295) mOsm/k g Calcium 9.3 (8.5-10.5) mg/dL Total Bilirubin 0.3 (0.15-1.2) mg/dL AST 23 (0-32) U/L ALT 32 (0-33) U/L Alkaline Phosphata se 62 (35-105) IU/L Total Protein 8.0 (6.6-8.7) g/dL Albumin 4.9 (3.5-5.2) g/dL Globulin 3.1 (1.3-4.6) g/dL HCG, Qual (Negative) Urine Color Yellow (Yellow) Urine Appearance Clear (CLEAR) Urine pH 6 (5-7) Ur Specific Gravit y 1.020 (1.005-1.030) Urine Protein 2+ H (Negative) Urine Glucose (UA) Norm (Normal) Urine Ketones 1+ H (Negative) Urine Blood 3+ H (Negative) Urine Nitrate Negative (Negative) Urine Bilirubin Neg (Negative) Urine Urobilinogen Norm (Negative) mg/dL Ur Leukocyte Jeri ase Negative (Negative) Urine RBC >100 H (0-2) /hpf Urine WBC 0-4 H (0-5) /hpf Ur Squamous Epith Cells None (0-5) /hpf Amorphous Sediment Not Reportable Urine Bacteria Trace (NONE) /hpf 05/04/21 Range/Units 15:23 WBC (4.0-10.0) 10^3/ uL RBC (4.1-5.3) 10^6/u L Hgb (11.5-15.3) g/dL Hct (37.0-47.0) % MCV (81-99) fl MCH (28.0-34.0) pg MCHC (30.0-36.0) g/dL RDW (12.1-15.1) % Plt Count (130-400) 10^3/c mm MPV (7.4-10.4) fL Neut % (Auto) % Lymph % (Auto) % Barbour % (Auto) % Eos % (Auto) % Baso % (Auto) % Neut # (Auto) (1.8-7.7) 10^3/u L Lymph # (Auto) (0.8-4.8) 10^3/u L Barbour # (Auto) (0.2-0.9) 10^3/u L Eos # (Auto) (0.0-0.8) 10^3/u L Baso # (Auto) (0.0-0.1) 10^3/u L Nucleated RBC % (a uto) % Nucleated RBCs # /100WBC Sodium (136-145) mmol/L Potassium (3.5-5.1) mmol/L Chloride (98-107) mmol/L Carbon Dioxide (22-29) mmol/L Anion Gap (5-19) BUN (6-20) mg/dL Creatinine (0.5-0.9) mg/dL GFR Calculation (90-130) mL/min Glucose (65-115) mg/dL Calculated Osmolal ity (285-295) mOsm/k g Calcium (8.5-10.5) mg/dL Total Bilirubin (0.15-1.2) mg/dL AST (0-32) U/L ALT (0-33) U/L Alkaline Phosphata se (35-105) IU/L Total Protein (6.6-8.7) g/dL Albumin (3.5-5.2) g/dL Globulin (1.3-4.6) g/dL HCG, Qual Negative (Negative) Urine Color (Yellow) Urine Appearance (CLEAR) Urine pH (5-7) Ur Specific Gravit y (1.005-1.030) Urine Protein (Negative) Urine Glucose (UA) (Normal) Urine Ketones (Negative) Urine Blood (Negative) Urine Nitrate (Negative) Urine Bilirubin (Negative) Urine Urobilinogen (Negative) mg/dL Ur Leukocyte Jeri ase (Negative) Urine RBC (0-2) /hpf Urine WBC (0-5) /hpf Ur Squamous Epith Cells (0-5) /hpf Amorphous Sediment Urine Bacteria (NONE) /hpf Imaging Data^: CT Abd/Pel: Radiologist's impression: [address] [address] [address] Scan Report Signed Patient: Lisa Rebolledo Unit #: [id number] : 1975 Age/Sex: 46 / F ADM Date: 05/04/21 Loc: ER Room/Bed: Attending Dr: Ordering Provider/Ordering MD: Abiola Dodge Date of Service: 05/04/21 Procedure(s): CT kidney stone 28847 Accession Number(s): [id number] Report Number: [id number] WS: [id number] CT scan of the abdomen and pelvis without Oral and IV contrast. Additional two-dimensional coronal and sagittal reconstruction was performed. 05/04/2021 Clinical Data: L flank pain Comparison: CT abdomen and pelvis, 01/04/2013. DLP: 1219.[address] scans at [facility] use at least one of these dose optimization techniques: automated exposure control; mA and/or kV adjustment per patient size (includes targeted exams where dose is matched to clinical indication); or iterative reconstruction. Findings: The lower lungs show no nodules, masses or effusions. The liver, gallbladder, spleen, adrenal glands and pancreas are normal. The right kidney shows a medial low density structure, 3.8 cm probably a cyst. No right renal calculi, hydronephrosis or hydroureter can be seen. The left kidney shows a nonobstructing 0.3 cm central calculus. There is left hydronephrosis and a proximal 0.8 cm left ureteral calculus. The abdominal aorta is normal in size. No appendicitis or diverticulitis is seen. No abscess, adenopathy, ascites, mass, obstruction or free air is seen. The stomach, small bowel and colon are not remarkable. The bladder is unremarkable. The uterus is absent. No inguinal hernia is seen. The bones of the lower thorax, lumbar spine, pelvis, and hips are normal. CT/CT kidney stone 12644 Impression: 1. Proximal left ureteral calculus, 0.8 cm. 2. Left renal pelvic dilatation with nonobstructing 0.3 cm calculus. 3. Probable 3.8 cm right renal cyst. Dictated By: Donya Leblanc MD Signed By: Donya Leblacn MD Signed Date/Time: 05/04/21 1600 DD/ 1552 Discharge Plan Discharge Patient Disposition: Admitted As Inpatient Clinical Impression: Calculus of proximal left ureter Condition: Stable Discharge Diet: Advance as tolerated Discharge Activity: Increase activity as tolerated Coding Level of Care Code ED Documentation Designer for Chg Fwd Exam Comprehensive Documented by User: Romain Alfaro DO 05/04/21 17:26 HPI - Back Pain/Injury General: Chief Complaint: Back Pain/Injury Stated Complaint: Back Pain Time Seen by Provider: 05/04/21 14:39 History of Present Illness: HPI Narrative: 46-year-old female presents emergency room withLeft flank pain. Began several days ago seemingly progressively worse. She has had some nausea. Home medications have not improved she had Covid in June 2000 MD elicited complaint: back pain Onset (ago): day(s) (3) Timing: constant Severity: severe Similar Symptoms Previously: Yes Quality: sharp Location: left flank Radiation: groin Exacerbating factors: none Relieving factors: none Context: history of kidney stones [facility] ED PFSH: Medical History (Updated 05/04/21 @ 18:53 by Jeff Butler MD) Breast swelling (05/15/19) Patient reporting an increase in left breast size compared to in the past. States noticed due to broad and not fitting appropriately. Denied feeling any masses. Denied pain or tenderness. Denied injuries to breast. Had normal mammogram in 07/2018. Based on exam today, left breast appears to be slightly larger than right. No masses, tenderness, skin changes noted on exam. Discussed with patient that this may be normal changes that can happen over time. Discussed with her this is unlikely to be a worrisome change. However, I do recommend that she continue to monitor this and if she continues to notice the left breast enlarging, she needs to return for another evaluation. -Patient due for wellness visit in July. We'll reassess at that time. Hypothyroidism (~2013) Surgical History H/O section (08/05/08) Performed by Dr. Abdi at [facility] in [place], [place]. Had hemorrhage treated with exploratory laparotomy with ligation of vessels and then return to the OR for hysterectomy due to continued bleeding. H/O exploratory laparotomy (08/05/08) With Uterine Vessel Ligation Diagnosis: Postoperative hemorrhage with broad ligament hematoma. Performed by Dr. Smalls at [facility] in [place], [place]. History of section (09/20/02) 09/20/2002 Comments: Diagnosis: Cephalopelvic disproportion. Performed in [place], [place] History of hysterectomy (08/05/18) Post hysterectomy. Diagnosis: hemorrhage, Broad ligament hematoma, Uterine vessel laceration. Performed by Dr. Smalls at [facility] in [place], [place]. Family History Mother Squamous cell carcinoma Grandmother Lymphoma MATERNAL Heart disease PATERNAL Hypertension PATERNAL Family history of thyroid problem PATERNAL Hypercholesteremia PATERNAL Grandfather Prostate cancer MATERNAL Father Heart disease Hypertension Social History Smoking and tobacco status: never smoked Physical Exam Const: COMMON NORMALS: no acute distress GENERAL APPEARANCE: cooperative and comfortable ORIENTATION/CONSCIOUSNESS: Yes awake, Yes oriented to person, Yes oriented to place and Yes oriented to time HENMT: COMMON NORMALS: normocephalic, atraumatic and hearing grossly normal bilaterally HEAD & SCALP: normocephalic and atraumatic Neck/C-Spine: COMMON NORMALS: no JVD Resp: COMMON NORMALS: normal respiratory effort, No retractions, No use of accessory muscles and clear to auscultation bilaterally AUSCULTATION: clear to auscultation bilaterally Cardio: COMMON NORMALS: no JVD, regular rate, regular rhythm and No murmurs present (Cardio) RATE: regular rate RHYTHM: regular rhythm GI: AUSCULTATION: Yes normoactive bowel sounds : BLADDER/KIDNEY EXAM: Yes CVA tenderness Back/Pelvis: GENERAL BACK: Yes CVA tenderness CVA tenderness: left Extremity: COMMON NORMALS: normal to inspection, capillary refill normal, no clubbing, cyanosis or edema, no calf tenderness and no pedal edema Neuro: SENSORIUM/ORIENTATION: Yes oriented to person, Yes oriented to place and Yes oriented to time Skin: COMMON NORMALS: no rashes or lesions noted GENERAL SKIN EXAM: no rashes or lesions noted Course Vital Signs: Vital signs: Vital Signs Temperature 97.4 F L 05/04/21 21:55 Pulse Rate 115 H 05/04/21 21:19 Respiratory Rate 15 05/04/21 21:19 Blood Pressure 144/98 05/04/21 21:19 Pulse Oximetry 97 05/04/21 21:19 MDM - Back Pain/Injury MDM Narrative: Medical decision making narrative: Seen and evaluated in vertical flow. She still is having quite a bit of flank pain. We will give her another dose of Dilaudid as well as some Reglan and Toradol previously ordered. Orders written for admission to Dr. Murphy Lab Data: Labs: Lab Results 05/04/21 05/04/21 05/04/21 Range/Units 14:54 15:23 15:23 WBC 15.6 H (4.0-10.0) 10^3/ uL RBC 4.99 (4.1-5.3) 10^6/u L Hgb 14.9 (11.5-15.3) g/dL Hct 43.4 (37.0-47.0) % MCV 87.0 (81-99) fl MCH 29.9 (28.0-34.0) pg MCHC 34.3 (30.0-36.0) g/dL RDW 11.9 L (12.1-15.1) % Plt Count 354 (130-400) 10^3/c mm MPV 9.8 (7.4-10.4) fL Neut % (Auto) 92.3 % Lymph % (Auto) 4.8 % Barbour % (Auto) 2.1 % Eos % (Auto) 0.0 % Baso % (Auto) 0.4 % Neut # (Auto) 14.37 H (1.8-7.7) 10^3/u L Lymph # (Auto) 0.8 (0.8-4.8) 10^3/u L Barbour # (Auto) 0.3 (0.2-0.9) 10^3/u L Eos # (Auto) 0.0 (0.0-0.8) 10^3/u L Baso # (Auto) 0.1 (0.0-0.1) 10^3/u L Nucleated RBC % (a uto) 0 % Nucleated RBCs # 0.0 /100WBC Sodium 139 (136-145) mmol/L Potassium 3.9 (3.5-5.1) mmol/L Chloride 102 (98-107) mmol/L Carbon Dioxide 21 L (22-29) mmol/L Anion Gap 19.9 H (5-19) BUN 14 (6-20) mg/dL Creatinine 0.9 (0.5-0.9) mg/dL GFR Calculation 68.0 L (90-130) mL/min Glucose 113 (65-115) mg/dL Calculated Osmolal ity 289 (285-295) mOsm/k g Calcium 9.3 (8.5-10.5) mg/dL Total Bilirubin 0.3 (0.15-1.2) mg/dL AST 23 (0-32) U/L ALT 32 (0-33) U/L Alkaline Phosphata se 62 (35-105) IU/L Total Protein 8.0 (6.6-8.7) g/dL Albumin 4.9 (3.5-5.2) g/dL Globulin 3.1 (1.3-4.6) g/dL HCG, Qual (Negative) Urine Color Yellow (Yellow) Urine Appearance Clear (CLEAR) Urine pH 6 (5-7) Ur Specific Gravit y 1.020 (1.005-1.030) Urine Protein 2+ H (Negative) Urine Glucose (UA) Norm (Normal) Urine Ketones 1+ H (Negative) Urine Blood 3+ H (Negative) Urine Nitrate Negative (Negative) Urine Bilirubin Neg (Negative) Urine Urobilinogen Norm (Negative) mg/dL Ur Leukocyte Jeri ase Negative (Negative) Urine RBC >100 H (0-2) /hpf Urine WBC 0-4 H (0-5) /hpf Ur Squamous Epith Cells None (0-5) /hpf Amorphous Sediment Not Reportable Urine Bacteria Trace (NONE) /hpf 05/04/21 Range/Units 15:23 WBC (4.0-10.0) 10^3/ uL RBC (4.1-5.3) 10^6/u L Hgb (11.5-15.3) g/dL Hct (37.0-47.0) % MCV (81-99) fl MCH (28.0-34.0) pg MCHC (30.0-36.0) g/dL RDW (12.1-15.1) % Plt Count (130-400) 10^3/c mm MPV (7.4-10.4) fL Neut % (Auto) % Lymph % (Auto) % Barbour % (Auto) % Eos % (Auto) % Baso % (Auto) % Neut # (Auto) (1.8-7.7) 10^3/u L Lymph # (Auto) (0.8-4.8) 10^3/u L Barbour # (Auto) (0.2-0.9) 10^3/u L Eos # (Auto) (0.0-0.8) 10^3/u L Baso # (Auto) (0.0-0.1) 10^3/u L Nucleated RBC % (a uto) % Nucleated RBCs # /100WBC Sodium (136-145) mmol/L Potassium (3.5-5.1) mmol/L Chloride (98-107) mmol/L Carbon Dioxide (22-29) mmol/L Anion Gap (5-19) BUN (6-20) mg/dL Creatinine (0.5-0.9) mg/dL GFR Calculation (90-130) mL/min Glucose (65-115) mg/dL Calculated Osmolal ity (285-295) mOsm/k g Calcium (8.5-10.5) mg/dL Total Bilirubin (0.15-1.2) mg/dL AST (0-32) U/L ALT (0-33) U/L Alkaline Phosphata se (35-105) IU/L Total Protein (6.6-8.7) g/dL Albumin (3.5-5.2) g/dL Globulin (1.3-4.6) g/dL HCG, Qual Negative (Negative) Urine Color (Yellow) Urine Appearance (CLEAR) Urine pH (5-7) Ur Specific Gravit y (1.005-1.030) Urine Protein (Negative) Urine Glucose (UA) (Normal) Urine Ketones (Negative) Urine Blood (Negative) Urine Nitrate (Negative) Urine Bilirubin (Negative) Urine Urobilinogen (Negative) mg/dL Ur Leukocyte Jeri ase (Negative) Urine RBC (0-2) /hpf Urine WBC (0-5) /hpf Ur Squamous Epith Cells (0-5) /hpf Amorphous Sediment Urine Bacteria (NONE) /hpf Discharge Plan Discharge Patient Disposition: Admitted As Inpatient Clinical Impression: Calculus of proximal left ureter Condition: Stable Discharge Diet: Advance as tolerated Discharge Activity: Increase activity as tolerated Coding Level of Care Code ED Documentation Designer for [place] Fwd Exam Comprehensive
--- NOTE | 2021-05-04 14:45 | CT_ITS ---
WS: [id number] CT scan of the abdomen and pelvis without Oral and IV contrast. Additional two-dimensional coronal a nd sagittal reconstruction was performed. 05/04/2021 Clinical Data: L flank pain Comparison: CT abdomen and pelvis, 01/04/2013. DLP: 1219.[address] scans at [facility] use at least one of these dose optimization techniques: automated e xposure control; mA and/or kV adjustment per patient size (includes targeted exams where dose is matc hed to clinical indication); or iterative reconstruction. Findings: The lower lungs show no nodules, masses or effusions. The liver, gallbladder, spleen, adrenal glands and pancreas are normal. The right kidney shows a medial low density structure, 3.8 cm probably a cyst. No right renal calculi , hydronephrosis or hydroureter can be seen. The left kidney shows a nonobstructing 0.3 cm central ca lculus. There is left hydronephrosis and a proximal 0.8 cm left ureteral calculus. The abdominal aorta is normal in size. No appendicitis or diverticulitis is seen. No abscess, adenopathy, ascites, mass, obstruction or free air is seen. The stomach, small bowel and colon are not remarkable. The bladder is unremarkable. The uterus is absent. No inguinal hernia is seen. The bones of the lower thorax, lumbar spine, pelvis, and hips are normal. CT/CT kidney stone [id number] Impression: 1. Proximal left ureteral calculus, 0.8 cm. 2. Left renal pelvic dilatation with nonobstructing 0.3 cm calculus. 3. Probable 3.8 cm right renal cyst.
[2021-05-04] MEDS: ondansetron 2 mg/ML SDV 2 mL 4 MG IVP ×2 (15:24→21:42)
[2021-05-04] MEDS: morphine 4 mg/mL SDV 1 mL IVP (15:26)
--- NOTE | 2021-05-04 15:39 | PC.NURSE ---
THIS NURSE GAVE PATIENT ZOFRAN AND MORPHINE AT 1526. RECHECKED WITH PATIENT AND PATIENT IS UP AND PACING, STATING THAT HER PAIN IS A GOING BACK UP AND RATES IT A 5/10. PATIENT STATES THAT THE MORPHINE DID NOT LAST LONG. ASHWIN RODRIGUEZ NOTIFIED.
[2021-05-04 15:42] LABS: Basophils # 0.1 10^3/uL (0.0-0.1); Basophils % 0.4 %; Hematocrit 43.4 % (37.0-47.0); Hemoglobin 14.9 g/dL (11.5-15.3); Lymphocytes # 0.8 10^3/uL (0.8-4.8); Lymphocytes % 4.8 %; Mean Corpuscular HGB Conc 34.3 g/dL (30.0-36.0); Mean Corpuscular Hemoglobin 29.9 pg (28.0-34.0); Mean Platelet Volume 9.8 fL (7.4-10.4); Monocytes # 0.3 10^3/uL (0.2-0.9); Monocytes % 2.1 %; Neutrophils # 14.37 10^3/uL (1.8-7.7); Neutrophils % 92.3 %; Nucleated Red Blood Cells % 0 %; Platelet Count 354 10^3/cmm (130-400); Red Blood Count 4.99 10^6/uL (4.1-5.3); Red Cell Distribution Width 11.9 % (12.1-15.1); White Blood Count 15.6 10^3/uL (4.0-10.0)
[2021-05-04] MEDS: fentaNYL 50 mcg/mL INJ 2mL IVP (16:00)
[2021-05-04 16:01] LABS: Urine Color Yellow (Yellow)
[2021-05-04 16:02] LABS: Add Urine Microscopic? YES; Bilirubin Urine Neg (Negative); Blood Urine 3+ (Negative); Glucose Urine UA Norm (Normal); Ketones Urine 1+ (Negative); Leukocyte Esterase Urine Negative (Negative); Nitrate Urine Negative (Negative); Protein Urine 2+ (Negative); Urine Appearance Clear (CLEAR); Urobilinogen Urine Norm (Negative); pH Urine 6 (5-7)
[2021-05-04 16:03] LABS: Add Urine Culture? Yes; Bacteria Urine TRACE /hpf; RBC Urine >100 /hpf (0-2); WBC Urine 0-4 /hpf (0-5)
[2021-05-04 16:13] LABS: Alanine Aminotransferase 32 U/L (0-33); Albumin Level 4.9 g/dL (3.5-5.2); Alkaline Phosphatase 62 IU/L (35-105); Anion Gap 19.9 (5-19); Aspartate Amino Transferase 23 U/L (0-32); Blood Urea Nitrogen 14 mg/dL (6-20); Calcium 9.3 mg/dL (8.5-10.5); Carbon Dioxide 21 mmol/L (22-29); Chloride 102 mmol/L (98-107); Globulin 3.1 g/dL (1.3-4.6); Glucose 113 mg/dL (65-115); Osmolality Calculated 289 mOsm/kg (285-295); Potassium 3.9 mmol/L (3.5-5.1); Sodium 139 mmol/L (136-145); Total Bilirubin 0.3 mg/dL (0.15-1.2)
[2021-05-04 16:33] LABS: HCG, Serum Qual Negative (Negative)
[2021-05-04] MEDS: HYDROmorphone 1 mg/mL INJ 1 mL IVP (16:47)
[2021-05-04] MEDS: sodium chloride 0.9% 1,000 ML 999 ML IV (16:47)
--- NOTE | 2021-05-04 16:52 | PC.NURSE ---
PATIENT STATES THAT PAIN MEDICATIONS REALLY ARE NOT HELPING. THIS NURSE EXPLAINED THAT THE DRUG OF CHOICE IS CURRENTLY AVAILABLE PER ASHWIN RODRIGUEZ DUE TO THE POTENTIAL FOR SURGERY AND BLEEDING RISKS. PATIENT HAS BEEN GIVEN MORPHINE, FENTANYL, AND DILAUDID. PATIENT RATES PAIN AT ITS WORST A 7/10 AND AT ITS BEST A 4/10. PATIENT MONITORED FOR OXYGEN DESATURATION. PATIENT SATURATION AT 96%. PATIENT HAS NO FURTHER NEEDS AT THIS TIME.
[2021-05-04] MEDS: metoclopramide 5 mg/mL SDV 2 mL 10 MG IVP ×2 (17:22→22:03)
[2021-05-04] MEDS: ketorolac 30 mg/mL INJ IVP (17:24)
--- NOTE | 2021-05-04 18:28 | P.HP_ITS ---
Providers/Chief Complaint Admitting Physician: Luke Primary Care Provider: Mack Rust MD Chief Complaint: Back Pain History of Present Illness Lisa Rebolledo is a 46 year old female who presented to emergency department today with severe left renal colic ultimately discovered on CT scan to be secondary to a large left proximal ureteral stone with high-grade obstruction. They had a very difficult time controlling her pain even with high doses of multiple narcotics. There is no evidence of infection. The patient was felt to not be a candidate for discharge home due to the severity of the pain. Once it was decided that she was not can undergo ESWL in the next few days Toradol was utilized which made a big difference in her pain. Based on the degree of difficulty controlling her pain and the likelihood of recurrence it was decided to take her to the operating room urgently tonight for intervention. The primary goal of intervention will be to drain the kidney to relieve obstruction but if accessible to perform ureteroscopy and and laser lithotripsy of the stone to try to avoid a second procedure under additional anesthesia at a later date. I did review that based on the position of the stone success rate for endoscopic treatment of the stone is probably slightly lower than ESWL. The procedure was explained in detail. Discussed the possibility of not being able to get a wire past the stone requiring transfer for interventional radiologist and percutaneous nephrostomy tube but felt that that was a very low chance. She does have an additional small left lower pole stone this nonobstructing. Review of Systems Const: Denies: fever(s) or chills Eyes: Denies: change in vision or blurry vision ENMT: Denies: hoarseness Card: Denies: chest pain or palpitations Resp: Denies: dyspnea, productive cough or wheezing GI: Reports: abdominal pain and nausea : Reports: flank pain (Left) Musc: Denies: joint redness or joint warmth Skin/Breast: Denies: rash or non-healing lesions Neuro: Denies: behavioral changes or Slurred speech present Psych: Denies: memory loss Medications/Allergies Home Medications Medication Instructions Recorded Confirmed Last Taken Type ibuprofen 200 mg tablet 200 - 400 mg PO Q4H PRN tab 09/25/19 05/04/21 05/04/21 10:30 History Ala,Nac,Alc Otc Tabs 2 tab PO DAILY 05/04/21 05/04/21 Unknown History ascorbic acid (vitamin C) [Vitamin 500 mg PO DAILY PRN 05/04/21 05/04/21 05/01/21 History C] baclofen 5 - 10 mg PO TID PRN 05/04/21 05/04/21 05/04/21 13:15 History 5mg @12:15 & 13:15 levothyroxine 25 mcg PO QAM 05/04/21 05/04/21 05/04/21 History multivitamin 1 tab PO DAILY 05/04/21 05/04/21 Unknown History omega-3 fatty acids [[place] 3] 1 cap PO DAILY 05/04/21 05/04/21 Unknown History ondansetron HCl 4 mg PO Q6H PRN 05/04/21 05/04/21 05/04/21 11:45 History Allergies Allergy/AdvReac Type Severity Reaction Status Date / Time No Known Allergies Allergy Verified 05/04/21 16:57 PFSH PFSH: Medical History (Updated 05/04/21 @ 18:53 by Jeff Butler MD) Breast swelling (05/15/19) Patient reporting an increase in left breast size compared to in the past. States noticed due to broad and not fitting appropriately. Denied feeling any masses. Denied pain or tenderness. Denied injuries to breast. Had normal mammogram in 07/2018. Based on exam today, left breast appears to be slightly larger than right. No masses, tenderness, skin changes noted on exam. Discussed with patient that this may be normal changes that can happen over time. Discussed with her this is unlikely to be a worrisome change. However, I do recommend that she continue to monitor this and if she continues to notice the left breast enlarging, she needs to return for another evaluation. -Patient due for wellness visit in July. We'll reassess at that time. Hypothyroidism (~2013) Surgical History H/O section (08/05/08) Performed by Dr. Abdi at [facility] in [place], [place]. Had hemorrhage treated with exploratory laparotomy with ligation of vessels and then return to the OR for hysterectomy due to continued bleeding. H/O exploratory laparotomy (08/05/08) With Uterine Vessel Ligation Diagnosis: Postoperative hemorrhage with broad ligament hematoma. Performed by Dr. Smalls at [facility] in [place], [place]. History of section (09/20/02) 09/20/2002 Comments: Diagnosis: Cephalopelvic disproportion. Performed in [place], [place] History of hysterectomy (08/05/18) Post hysterectomy. Diagnosis: hemorrhage, Broad ligament hematoma, Uterine vessel laceration. Performed by Dr. Smalls at [facility] in [place], [place]. Family History Mother Squamous cell carcinoma Grandmother Lymphoma MATERNAL Heart disease PATERNAL Hypertension PATERNAL Family history of thyroid problem PATERNAL Hypercholesteremia PATERNAL Grandfather Prostate cancer MATERNAL Father Heart disease Hypertension Social History Smoking and tobacco status: never smoked Dietary Habits: Caffeine: Yes Vital Signs Vitals Signs: Last Vital Signs Temp 98.3 F 05/04/21 14:52 Pulse 107 H 05/04/21 16:01 Resp 20 H 05/04/21 16:01 BP 165/106 05/04/21 16:01 Pulse Ox 96 05/04/21 16:51 Weight: Weight last 48 hrs Weight 185 lb Physical Exam Const: COMMON NORMALS: no acute distress, alert and well nourished GENERAL APPEARANCE: well kempt and well developed ORIENTATION/CONSCIOUSNESS: not confused HENMT: HEAD & SCALP: normocephalic and atraumatic Eye: COMMON NORMALS: conjunctivae normal and no scleral icterus CONJUNCTIVA: Yes conjunctivae normal Neck/C-Spine: COMMON NORMALS: full ROM GENERAL: Yes normal visual inspection Lymph: LYMPHATIC: no lymphadenopathy noted and no lymphedema noted Resp: COMMON NORMALS: normal respiratory effort EFFORT & INSPECTION: No labored and No Actively coughing AUSCULTATION: clear to auscultation bilaterally Cardio: COMMON NORMALS: regular rate and regular rhythm RATE: tachycardic GI: COMMON NORMALS: No hepatosplenomegaly present and no masses OTHER: Much improved tenderness in left upper quadrant left CVA : OTHER: Normal external female genitalia. No obvious lesions. Bladder not distended. Normal urethra. No vaginal discharge. Extremity: OTHER: Normal Gait Neuro: SENSORIUM/ORIENTATION: Yes alert Psych: COMMON NORMALS: mental status grossly normal APPEARANCE: Yes grossly normal and Yes well kempt ATTITUDE: Yes calm and Yes engaged Skin: COMMON NORMALS: no rashes or lesions noted and no jaundice A&P Assessment and plan (1) Calculus of proximal left ureter: 8 mm left proximal ureteral stone with obstructive changes and severe refractory symptoms. Could not go home. We will plan on stent placement and if accessible ureteroscopy laser lithotripsy. We will try to avoid a second procedure if possible. Status: Acute (2) Renal colic on left side: Secondary to 8 mm left proximal ureteral stone Status: Acute (3) Left renal stone: 3 mm left lower pole nonobstructing stone in addition Status: Acute (4) Nausea and vomiting: Status: Acute (5) Hydronephrosis, left: Related to stone Status: Acute Coding Level of Care Code Acute Guest Services Agent for [facility] Fwd Exam Comprehensive Diagnoses Calculus of proximal left ureter N20.1 Renal colic on left side N23 Left renal stone N20.0 Nausea and vomiting R11.2 Hydronephrosis, left N13.30
--- NOTE | 2021-05-04 18:44 | P.ANESASSM_ITS ---
Pre-Anesthetic Assessment Pre-Anesthetic Assessment: Height/Weight: Height 1.7 m Weight 83.915 kg Temp Pulse Resp BP Pulse Ox 98.3 F 107 H 20 H 165/106 96 05/04/21 14:52 05/04/21 16:01 05/04/21 16:01 05/04/21 16:01 05/04/21 16:51 Preop Diagnosis: Kidney stone Proposed Procedure: Laser lithotripsy, cystoscopy/stent Familial anesthetic complications: None Was Beta Jonah taken within 24 hours: N/A Was Clonidine taken within 24 hours: N/A Last intake: Crackers and dry cheerios at 1:30 Social: Social History: No alcohol and No tobacco Exam: Pre-Anes Outpt Exam: alert, oriented x 3, clear to auscultation bilaterally and regular rate & rhythm Airway: Cervical ROM: WNL MP: 3 Dentition: Full Metabolic: Metabolic: Thyroid Anesthetic Plan: ASA status: 2 Risk of > 500 ml blood loss (7ml/kg in children): No PFSH Anesthesia PFSH: Medical History (Updated 05/04/21 @ 16:34 by DORCAS Price) Breast swelling (05/15/19) Patient reporting an increase in left breast size compared to in the past. States noticed due to broad and not fitting appropriately. Denied feeling any masses. Denied pain or tenderness. Denied injuries to breast. Had normal mammogram in 07/2018. Based on exam today, left breast appears to be slightly larger than right. No masses, tenderness, skin changes noted on exam. Discussed with patient that this may be normal changes that can happen over time. Discussed with her this is unlikely to be a worrisome change. However, I do recommend that she continue to monitor this and if she continues to notice the left breast enlarging, she needs to return for another evaluation. -Patient due for wellness visit in July. We'll reassess at that time. Hypothyroidism (~2013) Surgical History H/O section (08/05/08) Performed by Dr. Abdi at [facility] [place] [facility] in [place], [place]. Had hemorrhage treated with exploratory laparotomy with ligation of vessels and then return to the OR for hysterectomy due to continued bleeding. H/O exploratory laparotomy (08/05/08) With Uterine Vessel Ligation Diagnosis: Postoperative hemorrhage with broad ligament hematoma. Performed by Dr. Smalls at [facility] [place] [facility] in [place], [place]. History of section (09/20/02) 09/20/2002 Comments: Diagnosis: Cephalopelvic disproportion. Performed in [place], [place] History of hysterectomy (08/05/18) Post hysterectomy. Diagnosis: hemorrhage, Broad ligament hematoma, Uterine vessel laceration. Performed by Dr. Smalls at [facility] [place] [facility] in [place], [place]. Family History Mother Squamous cell carcinoma Grandmother Lymphoma MATERNAL Heart disease PATERNAL Hypertension PATERNAL Family history of thyroid problem PATERNAL Hypercholesteremia PATERNAL Grandfather Prostate cancer MATERNAL Father Heart disease Hypertension Social History Smoking and tobacco status: never smoked Data Anesthesia CBC & Chem 7: 05/04/21 15:23 05/04/21 15:23 Other Labs: Laboratory Results - last 48 hr 05/04/21 05/04/21 05/04/21 14:54 15:23 15:23 WBC 15.6 H RBC 4.99 Hgb 14.9 Hct 43.4 MCV 87.0 MCH 29.9 MCHC 34.3 RDW 11.9 L Plt Count 354 MPV 9.8 Neut % (Auto) 92.3 Lymph % (Auto) 4.8 Reeves % (Auto) 2.1 Eos % (Auto) 0.0 Baso % (Auto) 0.4 Neut # (Auto) 14.37 H Lymph # (Auto) 0.8 Reeves # (Auto) 0.3 Eos # (Auto) 0.0 Baso # (Auto) 0.1 Nucleated RBC % (auto) 0 Nucleated RBCs # 0.0 Sodium 139 Potassium 3.9 Chloride 102 Carbon Dioxide 21 L Anion Gap 19.9 H BUN 14 Creatinine 0.9 GFR Calculation 68.0 L Glucose 113 Calculated Osmolality 289 Calcium 9.3 Total Bilirubin 0.3 AST 23 ALT 32 Alkaline Phosphatase 62 Total Protein 8.0 Albumin 4.9 Globulin 3.1 HCG, Qual Urine Color Yellow Urine Appearance Clear Urine pH 6 Ur Specific [place] 1.020 Urine Protein 2+ H Urine Glucose (UA) Norm Urine Ketones 1+ H Urine Blood 3+ H Urine Nitrate Negative Urine Bilirubin Neg Urine Urobilinogen Norm Ur Leukocyte Esterase Negative Urine RBC >100 H Urine WBC 0-4 H Ur Squamous Epith Cells None Amorphous Sediment Not Reportable Urine Bacteria Trace 05/04/21 15:23 WBC RBC Hgb Hct MCV MCH MCHC RDW Plt Count MPV Neut % (Auto) Lymph % (Auto) Reeves % (Auto) Eos % (Auto) Baso % (Auto) Neut # (Auto) Lymph # (Auto) Reeves # (Auto) Eos # (Auto) Baso # (Auto) Nucleated RBC % (auto) Nucleated RBCs # Sodium Potassium Chloride Carbon Dioxide Anion Gap BUN Creatinine GFR Calculation Glucose Calculated Osmolality Calcium Total Bilirubin AST ALT Alkaline Phosphatase Total Protein Albumin Globulin HCG, Qual Negative Urine Color Urine Appearance Urine pH Ur Specific [place] Urine Protein Urine Glucose (UA) Urine Ketones Urine Blood Urine Nitrate Urine Bilirubin Urine Urobilinogen Ur Leukocyte Esterase Urine RBC Urine WBC Ur Squamous Epith Cells Amorphous Sediment Urine Bacteria Cardiac Studies: Holter Monitor 02/04/20
[2021-05-04] MEDS: sodium chloride 0.9% 1,000 ML 30 ML IV (19:30)
[2021-05-04] MEDS: scopolamine 1.5 Patch 1 PATCH TRANSDERMA (19:30)
--- NOTE | 2021-05-04 19:31 | SC_ITS ---
WS: [id number] C-arm fluoroscopy for left ureteral stent placement, 05/04/2021 Clinical Data: intra-op Comparison: None. Findings: Dr. Butler inserted a left ureteral stent. SC/C-arm FL for Urology Impression: Left ureteral stent insertion.
--- NOTE | 2021-05-04 20:53 | P.OP_ITS ---
Operative Report Date of procedure: May 04, 2021 Pre-op Diagnosis: Large left proximal ureteral stone with high-grade obstruction refractory p Post-op diagnosis: same Procedure Done: 1. Cystoscopy with left retrograde ureteropyelogram 2. LEFT ureterorenoscopy with laser lithotripsy 3. LEFT ureteral stent (6 Citizen [place] by 26 cm double-pigtail without string) Implants: Left ureteral stent Pathology: Stone fragments Surgeon: Luke Anesthesia: General Estimated blood loss: Minimal Urine output: Not measured Complications: None Findings: Stone in the expected position Fragmented with 365 ?m thulium superpulse laser fiber into sand mostly and otherwise tiny fragments Embroidery Cutter fragments were removed as able with X catch basket. Ureteral stent left indwelling Condition: stable Disposition: PACU Brief History: Lisa is a very pleasant 46-year-old white female who I evaluated for the first time today in the emergency department with refractory severe left renal colic secondary to an 8 mm left proximal ureteral stone with obstructive changes on CT scan in the absence of UTI. The ER staff had a very difficult time getting her pain controlled and ultimately because of that we elected to proceed with stent placement possible ureteroscopy laser lithotripsy Procedure: After urgent/emergent preoperative evaluation examination and obtaining of informed consent she was taken from the emergency department to the operating room. Appropriate timeout was performed, SCDs confirmed to be functioning, preoperative antibiotics administered, beta-mario protocol confirmed. Appropriate level of anesthesia was obtained and she was then prepped and draped in the usual sterile fashion in dorsolithotomy position paying careful attention to avoiding pressure points. 21 Citizen [place] cystoscope with 30 degree lens was introduced into the urethral meatus and advanced into the bladder under videoscopy. The bladder was systematically examined and found to be within normal limits. An 8 [place] cone-tip catheter was intubated to the left ureteral orifice for a left retrograde ureteropyelogram which showed normal course and caliber of the ureter from the ureteral orifice up to the filling defect consistent with a stone seen on CT scan. The ureter proximal to the stone was dilated. A flexible tip guidewire was advanced up the left ureter bypassing the stone curling in the upper pole calyx. The distal ureter was then dilated with a 15 [place] 4 cm balloon with no waist at the completion. A second guidewire was passed and the cystoscope was removed. One wire was secured to the drapes as a safety wire and the second wire as a working wire. A 24 cm ureteral access sheath was advanced over the working wire to several centimeters just below the stone. The inner sheath was removed and the wire was removed. The 7 [place] offset semirigid ureteroscope was then advanced up the left ureter through the sheath to the level of the stone which was partially fragmented with a 365 ?m thulium superpulse laser fiber. Some of the fragments migrated into the renal pelvis. All the fragments could be easily reached with the rigid rigid ureteroscope were treated. The scope was then exchanged for a flexible digital ureteroscope and the same laser fiber was utilized to fragment all the remaining pieces into basically sand in the renal pelvis and multiple calyces. An X catch basket was utilized to withdraw some of the business center representative samples and these were sent for pathologic evaluation. The scope was removed the sheath was gently removed and then the cystoscope was backloaded over the safety wire and a 6 [place] by 26 m double-pigtail stent was advanced over the guidewire through the cystoscope into appropriate position as confirmed via fluoroscopy and cystoscopy. The bladder was drained and the procedure was completed. Specimens were collected and sent for pathologic evaluation. She tolerated the procedure well without complications and was awakened in the operating room and returned to the recovery room in stable condition. PLANS: 1. Anticipate discharge from outpatient surgery tonight 2. Follow-up with [facility] in approximately 2 weeks with anticipation of stent removal at that time 3. Strain all voids and save any pieces that pass into the strainer
[2021-05-04] MEDS: meperidine 50 mg/mL INJ 12.5 MG IVP (21:55)
[2021-05-04] MEDS: oxyCODONE-APAP 5-325 mg Tablet 3 TAB PO (22:02)
[2021-05-04] MEDS: diphenhydrAMINE 50 mg/mL SDV 1mL 12.5 MG IVP (22:20)
[2021-05-09 03:13] LABS: Stone Source LEFT URETER
== END 2021-05-04 22:42 | disposition home or self-care (01) ==
LOC: ER 17:14 → OPS 18:41
PROVIDERS: Physician Assistant; Emergency Provider Family Medicine; PCP Family Medicine; Visit Provider Urology
PROC: 0TJB8ZZ Inspection of Bladder, Via Natural or Artificial Opening Endoscopic (ICD-10-PCS; CPT 52000; principal; 2021-05-04 19:30)
PROC: (CPT 74420; 2021-05-04 19:30)
PROC: 0TJ98ZZ Inspection of Ureter, Via Natural or Artificial Opening Endoscopic (ICD-10-PCS; CPT 52351; 2021-05-04 19:30)
PROC: (CPT 50605; 2021-05-04 19:30)
PROC: (CPT 52356; 2021-05-04 19:30)
DX: N20.1 Calculus of ureter (principal); N13.8 Other obstructive and reflux uropathy; E03.9 Hypothyroidism, unspecified
CPT/HCPCS: 52356; 74176; 76000; 80053; 81001; 82365; 84703; 85025; 87086; 88300; 96374; 96375; C2625; J1100; J1170; J1200; J1885; J2175; J2270; J2405; J2704; J2765; J3010; J3490; J7030

== ENCOUNTER 2021-05-20 09:36 | Outpatient (CLI) | payer OTHER, SELFPAY ==
--- NOTE | 2021-05-20 09:30 | XR_ITS ---
WS: [id number], AP view, 05/20/2021 Clinical Data: LEFT RENAL STONE Comparison: [facility], 08/05/2008. CT abdomen and pelvis, 05/04/2021. Findings: There is a left ureteral stent in good position. There are calcifications overlying the inferior pole of the left kidney. The proximal left 0.8 cm ureteral calculus is difficult to see. There is fecal material throughout the colon. XR/XR KUB [id number] Impression: Placement of left ureteral stent.
== END 2021-05-20 09:37 | disposition home or self-care (01) ==
LOC: RAD 09:48
PROVIDERS: PCP Family Medicine; Visit Provider Urology
DX: N20.0 Calculus of kidney (principal); Z96.0 Presence of urogenital implants
CPT/HCPCS: 74018; 81003

== ENCOUNTER 2021-08-08 08:05 | Outpatient (CLI) | payer OTHER, SELFPAY ==
--- NOTE | 2021-08-08 08:00 | XR_ITS ---
WS: [id number] XR [place]UB [id number] REASON FOR EXAM: LEFT URETERAL STONE FINDINGS: Compared to the previous examination of 05/20/2021, the left ureteral catheter has been removed. No definite urinary tract calculi are identified. Large left ureteral junction calculus previously no hollie was previously removed. Small calculus in lower pole of the left kidney previously identified is not readily identifiable on this examination. No other significant abdominal abnormality. XR/XR KUB [id number] IMPRESSION: No urinary tract calculi identified.
== END 2021-08-08 08:06 | disposition home or self-care (01) ==
LOC: RAD 08:07
PROVIDERS: PCP Family Medicine; Visit Provider Urology
DX: N20.1 Calculus of ureter (principal)
CPT/HCPCS: 74018; 81003

== ENCOUNTER 2022-06-21 08:15 | Outpatient (CLI) | payer OTHER, SELFPAY ==
--- NOTE | 2022-06-21 08:33 | MM_ITS ---
WS: [id number] VIEWS: MLO and CC views both breasts. 3D digital tomosynthesis is also included in this exam. Comparison made with prior exam of 08/02/2018. Findings: There was no sign of mass, architectural distortion or suspicious calcification in either breast. Sc attered fibroglandular densities MM/[place] [id number] Impression: BI-RADS: 2-Benign FOLLOW-UP: 1 Year Follow-up This mammogram was also analyzed by the Computer Aided Detection System R2 [employer].
== END 2022-06-21 08:16 | disposition home or self-care (01) ==
PROVIDERS: PCP Family Medicine; Visit Provider Family Medicine
DX: Z12.31 Encounter for screening mammogram for malignant neoplasm of breast (principal)
CPT/HCPCS: 77063; 77067

== ENCOUNTER 2022-10-30 14:14 | Outpatient (CLI) | payer OTHER, SELFPAY ==
--- NOTE | 2022-10-30 14:32 | XRR_ITS ---
PROCEDURE INFORMATION: Exam: XR Abdomen Exam date and time: 10/30/2022 3:10 PM Age: 47 years old Clinical indication: Condition or disease; Kidney or ureter condition; Calculus (stone) in kidney; Prior surgery; Surgery type: , hysterectomy; Additional info: Urolithiasis, [facility] @ [facility] 10/30/22 @ 215 appointment to follow TECHNIQUE: Imaging protocol: Radiologic exam of the abdomen. Views: Frontal supine view of the abdomen. 1 View. COMPARISON: CR XR KUB [id number] 08/08/2021 8:22 AM FINDINGS: Gastrointestinal tract: Normal. No bowel dilation. Vasculature: Calcified phleboliths again seen over pelvis. Bones/joints: Unremarkable. XR/XR KUB [id number] IMPRESSION: 1. Negative for urinary calculus. 2. Calcified phleboliths again seen over pelvis.
== END 2022-10-30 14:15 | disposition home or self-care (01) ==
PROVIDERS: PCP Family Medicine; Visit Provider Urology
DX: N20.9 Urinary calculus, unspecified (principal)
CPT/HCPCS: 74018; 81003

== ENCOUNTER 2023-04-17 14:26 | Emergency (ER) | payer OTHER, SELFPAY ==
[2023-04-17] VITALS (8 sets, daily range): BP systolic 141–168; BP diastolic 79–110; PULSE 90–149; RESP 12–18; TEMP 36.6; O2SAT 94–100
--- NOTE | 2023-04-17 14:52 | XR_ITS ---
WS: [id number] EXAMINATION: XR chest 1V portable [id number] REASON FOR EXAM: cp COMPARISON: 12/28/2019 ORDER DATE: 04/17/2023 2:54 PM TECHNIQUE: A single, portable frontal chest x-ray was obtained. X-RAY FINDINGS: The lungs are clear. Pleural spaces are clear. No pleural effusions or pneumothorax. Cardiomediastinal silhouette is normal. No evidence for pulmonary edema. Soft tissue and osseous structures are unremarkable. No tubes or lines are present. IMPRESSION: Unremarkable frontal portable chest x-ray.
[2023-04-17] MEDS: lactated ringers 1,000 ML 999 ML IV (14:57)
--- NOTE | 2023-04-17 14:58 | ECG_ITS ---
[facility] Test Date: 2023-04-17 Pat Name: Lisa Rebolledo Department: Room: Gender: Female Director Immunology: : 1975 Requested By: Kem Flood Order Number: [id number] Roni MD: Andrew Martínez M.D. Measurements Intervals [place] Rate: 139 P: -51 PA: 131 QRS: 253 QRSD: 85 T: -65 QT: 329 QTc: 501 Interpretive Statements ECTOPIC ATRIAL TACHYCARDIA POSSIBLE RIGHT VENTRICULAR HYPERTROPHY [SOME/ALL OF: PROMINENT R IN V1, LATE TRANSITION, RAD, [place], SSS] ST DEVIATION AND MODERATE T-WAVE ABNORMALITY, CONSIDER INFERIOR ISCHEMIA [-0.1+ mV T-WAVE IN II/aVF] Compared to ECG 12/28/2019 17:26:00 Atrial abnormality now present T-wave abnormality now present Possible ischemia now present Sinus tachycardia no longer present ST (T wave) deviation no longer present Electronically Signed On 04-18-2023 19:58:09 CDT by Andrew Martínez M.D. [email or web address]
[2023-04-17 15:00] LABS: Basophils # 0.1 10^3/uL (0.0-0.1); Basophils % 0.5 %; Eosinophils # 0.1 10^3/uL (0.0-0.8); Eosinophils % 0.8 %; Hematocrit 42.6 % (36-47); Lymphocytes % 20.4 %; Mean Corpuscular HGB Conc 34.3 g/dL (30-55); Mean Corpuscular Hemoglobin 29.7 pg (27-33); Mean Corpuscular Volume 86.8 fl (85-98); Mean Platelet Volume 9.7 fL (7.4-10.4); Monocytes # 0.7 10^3/uL (0.2-0.9); Monocytes % 6.8 %; Neutrophils # 6.86 10^3/uL (1.8-7.7); Neutrophils % 70.9 %; Nucleated Red Blood Cells % 0 %; Platelet Count 309 10^3/cmm (157-399); Red Blood Count 4.91 10^6/uL (3.85-5.65); Red Cell Distribution Width 11.9 % (12.1-15.1); White Blood Count 9.68 10^3/uL (3.29-11.43)
--- NOTE | 2023-04-17 15:05 | W.ED.DIZZY ---
HPI - Dizziness General: Chief Complaint: Dizziness Stated Complaint: irregular hr, dizziness, n/v Time Seen by Provider: 04/17/23 14:40 Source: patient and family Mode of arrival: ambulatory Limitations: no limitations History of Present Illness: HPI Narrative: This patient presents to our emergency department with sensation of feeling lightheaded and dizzy and rapid heart rate with palpitations. She states that the symptoms began shortly after returning from a walk. She states she walked approximately 1 hour in the heat but states she felt like she was adequately drinking. She denies any recent illness. She is taking thyroid replacement but that dose has not been changed. She did drink 1 cup of coffee this morning. She denies any [id number] medications other stimulants, etc. She has had a prior history of similar occurrence approximately 3 years ago that was evaluated in the emergency department and subsequently had Holter monitoring which did not reveal any abnormal rhythms. She had subjective events that occurred during sinus tachycardia. She denies any recent illness, alcohol use tobacco use. She has taken progesterone in the past but is not currently on any hormonal therapy. She has no history of thromboembolic events. No current risk of same. She has had a prior hysterectomy. Denies any feelings of anxiety depression or other emotional upset. Associated symptoms: Reports palpitations; Denies chills, headache(s), nausea or vomiting Associated neuro symptoms: Deny numbness in extremities Review of Systems Const: Denies: fever(s), chills, change in appetite or change in weight Eyes: Denies: change in vision ENMT: Denies: odynophagia or nasal discharge Card: Reports: palpitations and lightheadedness; Denies: dyspnea on exertion Resp: Denies: dyspnea, productive cough, non-productive cough or wheezing GI: Denies: abdominal pain, nausea or vomiting : Denies: flank pain, difficulty voiding or dysuria Musc: Denies: neck pain, back pain, extremity pain or extremity swelling Skin/Breast: Denies: rash Neuro: Denies: headache(s), numbness in extremities or weakness in extremities Psych: Denies: anxiety, depression or mood swings Endo: Denies: polyuria, polydipsia, tired all the time or cold intolerance PFS ED PFSH: Medical History Breast swelling (05/15/19) Patient reporting an increase in left breast size compared to in the past. States noticed due to broad and not fitting appropriately. Denied feeling any masses. Denied pain or tenderness. Denied injuries to breast. Had normal mammogram in 07/2018. Based on exam today, left breast appears to be slightly larger than right. No masses, tenderness, skin changes noted on exam. Discussed with patient that this may be normal changes that can happen over time. Discussed with her this is unlikely to be a worrisome change. However, I do recommend that she continue to monitor this and if she continues to notice the left breast enlarging, she needs to return for another evaluation. -Patient due for wellness visit in July. We'll reassess at that time. Hypothyroidism (~2013) Urolithiasis Multiple stone former with ureteroscopy and spontaneous passage to clear. Surgical History H/O section (08/05/08) Performed by Dr. Abdi at [facility] in [place], [place]. Had hemorrhage treated with exploratory laparotomy with ligation of vessels and then return to the OR for hysterectomy due to continued bleeding. H/O exploratory laparotomy (08/05/08) With Uterine Vessel Ligation Diagnosis: Postoperative hemorrhage with broad ligament hematoma. Performed by Dr. Smalls at [facility] in [place], [place]. History of section (09/20/02) 09/20/2002 Comments: Diagnosis: Cephalopelvic disproportion. Performed in [place], [place] History of hysterectomy (08/05/18) Post hysterectomy. Diagnosis: hemorrhage, Broad ligament hematoma, Uterine vessel laceration. Performed by Dr. Smalls at [facility] in [place], [place]. Status post laser lithotripsy of ureteral calculus With temporary stent, for left proximal ureteral stone Family History Mother Squamous cell carcinoma Grandmother Lymphoma MATERNAL Heart disease PATERNAL Hypertension PATERNAL Family history of thyroid problem PATERNAL Hypercholesteremia PATERNAL Grandfather Prostate cancer MATERNAL Father Heart disease Hypertension Social History Smoking and tobacco status: never smoked Alcohol intake: current Alcohol intake frequency: holidays/special occasions only Marital status: Current occupational status: employed Physical Exam Narrative: EXAM NARRATIVE: Slightly anxious but was questions appropriately and fluently in a goal-directed fashion. Const: COMMON NORMALS: patient oriented x3 and alert GENERAL APPEARANCE: cooperative HENMT: COMMON NORMALS: normocephalic, Normal nasal mucous membranes and turbinates present, moist oral mucous membranes and oropharynx normal HEAD & SCALP: normocephalic NOSE: Normal nasal mucous membranes and turbinates present Eye: COMMON NORMALS: Equal, round and reactive pupils present, EOMs intact bilaterally and conjunctivae normal CONJUNCTIVA: Yes conjunctivae normal PUPIL: Yes Equal, round and reactive pupils present Neck/C-Spine: COMMON NORMALS: full ROM, no lymphadenopathy, Thyroid normal and No carotid bruits THYROID: Thyroid normal Chest: COMMONS NORMALS: normal inspection of the chest and normal palpation of entire chest wall Resp: COMMON NORMALS: normal respiratory effort, No retractions, No use of accessory muscles and clear to auscultation bilaterally AUSCULTATION: clear to auscultation bilaterally Cardio: COMMON NORMALS: regular rhythm, No murmurs present (Cardio) and Peripheral pulses 2+ throughout RATE: tachycardic RHYTHM: regular rhythm PERIPHERAL PULSES: Peripheral pulses 2+ throughout GI: COMMON NORMALS: Normal to inspection, nondistended, normoactive bowel sounds present, Soft to palpation and non-tender PALPATION: Yes Soft to palpation : COMMON NORMALS: Yes no CVA tenderness BLADDER/KIDNEY EXAM: Yes no CVA tenderness Back/Pelvis: COMMON NORMALS: no CVA tenderness, thoracic and lumbar spine normal to inspection, no thoracic nor lumbar tenderness, thoraco-lumbar ROM normal and straight leg raise negative bilaterally Extremity: COMMON NORMALS: normal to inspection, capillary refill normal, no joint enlargement, no clubbing, cyanosis or edema, no calf tenderness and no pedal edema Neuro: COMMON NORMALS: patient oriented x3, moves all extremities, no focal motor deficits and no sensory deficits noted SENSORIUM/ORIENTATION: Yes alert CRANIAL NERVES: Yes CN normal except as noted Psych: COMMON NORMALS: mental status grossly normal, Normal thought process present and cooperative THOUGHT PROCESS: Normal thought process present Skin: COMMON NORMALS: no rashes or lesions noted, no wounds and turgor normal GENERAL SKIN EXAM: no rashes or lesions noted and turgor normal Course Reevaluation(s): Reevaluation #1: He is remained now in the 90s. Still has mild elevation in systolic blood pressure but currently totally asymptomatic. Reviewed current laboratories their limitations and implications. At this point appears the patient does not have any worrisome issues such as hypothyroidism, thromboembolic event, ACS etc. She is stable to be discharged for primary care and ultimately either cardiology or EP follow-up. She and spouse voiced understanding and all questions were answered. Time: 17:15 Vital Signs: Vital signs: Vital Signs Temperature 98 F 04/17/23 14:27 Pulse Rate 96 04/17/23 16:30 Respiratory Rate 13 04/17/23 16:30 Blood Pressure 141/96 04/17/23 16:30 Pulse Oximetry 94 04/17/23 16:30 Oxygen Delivery Me thod Room Air 04/17/23 15:45 MDM - Dizziness Medical Decision Making This patient presented to the emergency department because of dizziness and rapid heart rate and sensation of palpitations. This episode today began approximate hour or so after walking approximately an hour in the heat. She states she did not feel any symptoms during her walk. States these are similar to those that she experienced approximately 3+ years ago and was evaluated and not found to have any pathologic cause at that time but had a limited evaluation. Patient does take thyroid replacement as well as has a prescription for progesterone but she does not take that medication. She has no history of thromboembolic events, other arrhythmias, or family history of sudden or arrhythmia. Clinical examination revealed narrow complex sinus tachycardia. No ischemic changes noted on EKG. Work-up entailed to ensure no evidence of or risk of thromboembolic event, ACS, electrolyte disturbance or thyroid dysfunction. All which returned very reassuring. Chest x-ray was also reassuring. She did receive 5 mg of metoprolol IV while in the emergency department and her rate responded to that medication in addition to IV fluids. She remained clinically stable on reevaluation. Again no evidence to suggest thrombolic embolic issues at this time, ACS, electrolyte abnormalities, thyroid replacement perturbations etc. She is stable and desires to be discharged we will discharge her with a prescription for atenolol to use as needed with a primary care follow-up to determine if she needs additional consultation with electrophysiology etc. We also discussed return precautions. Medical Records I reviewed the patient's medical records. Prior Holter monitor results reviewed from 1999 and . No other rhythm predominated other than sinus tachycardia. Lab Data I reviewed the patient's lab results. 04/17/23 14:51 04/17/23 14:51 Laboratory Results WBC 9.68 10^3/uL (3.29-11.43) 04/17/23 14:51 RBC 4.91 10^6/uL (3.85-5.65) 04/17/23 14:51 Hgb 14.60 g/dL (11.27-16.99) 04/17/23 14:51 Hct 42.6 % (36-47) 04/17/23 14:51 MCV 86.8 fl (85-98) 04/17/23 14:51 MCH 29.7 pg (27-33) 04/17/23 14:51 MCHC 34.3 g/dL (30-55) 04/17/23 14:51 RDW 11.9 % (12.1-15.1) L 04/17/23 14:51 Plt Count 309 10^3/cmm (157-399) 04/17/23 14:51 MPV 9.7 fL (7.4-10.4) 04/17/23 14:51 Neut % (Auto) 70.9 % 04/17/23 14:51 Lymph % (Auto) 20.4 % 04/17/23 14:51 [place] % (Auto) 6.8 % 04/17/23 14:51 Eos % (Auto) 0.8 % 04/17/23 14:51 Baso % (Auto) 0.5 % 04/17/23 14:51 Neut # (Auto) 6.86 10^3/uL (1.8-7.7) 04/17/23 14:51 Lymph # (Auto) 2.0 10^3/uL (0.8-4.8) 04/17/23 14:51 [place] # (Auto) 0.7 10^3/uL (0.2-0.9) 04/17/23 14:51 Eos # (Auto) 0.1 10^3/uL (0.0-0.8) 04/17/23 14:51 Baso # (Auto) 0.1 10^3/uL (0.0-0.1) 04/17/23 14:51 Nucleated RBC % (auto) 0 % 04/17/23 14:51 Nucleated RBCs # 0.0 /100WBC 04/17/23 14:51 D-Dimer <= 0.27 ug/mLFEU (0-0.59) 04/17/23 15:31 Sodium 138 mmol/L (136-145) 04/17/23 14:51 Potassium 3.7 mmol/L (3.5-5.1) 04/17/23 14:51 Chloride 103 mmol/L (98-107) 04/17/23 14:51 Carbon Dioxide 19 mmol/L (22-29) L 04/17/23 14:51 Anion Gap 19.7 (5-19) H 04/17/23 14:51 BUN 17 mg/dL (6-20) 04/17/23 14:51 Creatinine 0.8 mg/dL (0.5-0.9) 04/17/23 14:51 GFR Calculation 77.2 mL/min (90-130) L 04/17/23 14:51 Glucose 140 mg/dL (65-115) H 04/17/23 14:51 Calculated Osmolality 290 mOsm/kg (285-295) 04/17/23 14:51 Calcium 9.5 mg/dL (8.5-10.5) 04/17/23 14:51 Magnesium 2.2 mg/dL (1.7-2.3) 04/17/23 14:51 Troponin T Baseline 6 ng/L (0-10) 04/17/23 14:51 TSH 1.53 uIU/mL (0.27-4.20) 04/17/23 14:51 EKG Data EKG 1: I personally reviewed and interpreted this EKG as follows: Interpretation: Contemporaneous review of her EKG reveals a ventricular rate of 139 bpm. Narrow complex tachycardia which appears to be atrial in origin. Normal QRS duration, normal QT interval. No acute ST-T wave changes noted. Discharge Plan Discharge Patient Disposition: Home Clinical Impression: Narrow complex tachycardia Condition: Stable Prescriptions: New atenolol 25 mg tablet 25 mg PO DAILY Qty: 30 0RF No Action ibuprofen [Advil] 200 mg tablet 200 - 400 mg PO Q4H PRN (Reason: Pain) multivitamin Tablet 1 tab PO DAILY levothyroxine 25 mcg tablet 25 mcg PO QAM Vitamin D3 125 mcg (5,000 unit) Tablet 125 mcg PO DAILY [place] 3-6-9 1,200 mg Capsule 1 cap PO DAILY Discharge Orders: Discharge ED (Routine); Ordered 04/17/23 Ordered By: Kem Flood Referrals: Mack Rust MD [Primary Care Provider] - 7-10 days (Follow-up for tachycardia) Discharge Diet: Usual diet Discharge Activity: Resume usual activity Patient Instructions: Opioid Safety, Pain Management Activity Restrictions/Additional Instructions: As we discussed your emergency department evaluation did not reveal any obvious serious conditions or explanations for your fast heart rate. We have provided a prescription to use as needed for elevation in your heart rate. Monitor your blood pressure at home and record those numbers for Dr. Rust. Follow-up with Dr. Rust in the next 7 to 10 days for reevaluation and reassessment and determination if additional consultation is indicated. You are welcome to return to the emergency department anytime for any recurrent symptoms or other concerns. Coding Level of Care Code ED Eyeglass Cutter for Ina Ramsey
[2023-04-17 15:21] LABS: Troponin(5th) Baseline 6 ng/L (0-10)
[2023-04-17 15:30] LABS: Blood Urea Nitrogen 17 mg/dL (6-20); Calcium 9.5 mg/dL (8.5-10.5); Carbon Dioxide 19 mmol/L (22-29); Chloride 103 mmol/L (98-107); Glomerular Filtration Rate 77.2 mL/min (90-130); Glucose 140 mg/dL (65-115); Magnesium 2.2 mg/dL (1.7-2.3); Osmolality Calculated 290 mOsm/kg (285-295); Sodium 138 mmol/L (136-145); Thyroid Stimulating Hormone 1.53 uIU/mL (0.27-4.20)
[2023-04-17] MEDS: aspirin 81 mg Chew Tablet 324 MG PO (15:31)
[2023-04-17 15:33] LABS: Anion Gap 19.7 (5-19); Potassium 3.7 mmol/L (3.5-5.1)
[2023-04-17] MEDS: metoprolol tartrate 1 mg/1 mL SDV 5 mL 5 MG IVP (15:33)
[2023-04-17 16:08] LABS: D Dimer <= 0.27 ug/mLFEU (0-0.59)
--- NOTE | 2023-04-17 16:47 | ECG_ITS ---
[facility] Test Date: 2023-04-17 Pat Name: Lisa Rebolledo Department: Room: Gender: Female [employer] Programs Director: : 1975 Requested By: Kem Flood Order Number: [id number] Roni MD: Andrew Martínez M.D. Measurements Intervals [place] Rate: 94 P: 64 OR: 137 QRS: 27 QRSD: 81 T: 43 QT: 354 QTc: 444 Interpretive Statements SINUS RHYTHM Compared to ECG 04/17/2023 14:32:14 Atrial abnormality no longer present T-wave abnormality no longer present Possible ischemia no longer present Electronically Signed On 04-18-2023 20:31:00 CDT by Andrew Martínez M.D. [id number]
[2023-04-17 17:58] LABS: Troponin 5 2HR 8.81 ng/L (0-10); Troponin 5 2HR Delta 2.81 ABS# (0-10)
== END 2023-04-17 17:31 | disposition home or self-care (01) ==
PROVIDERS: Emergency Provider Emergency Medicine; PCP Family Medicine
DX: R00.0 Tachycardia, unspecified (principal)
CPT/HCPCS: 36415; 71045; 80048; 83735; 84443; 84484; 85025; 85378; 93005; 96374; 99285; J3490; J7120

== ENCOUNTER 2025-02-23 09:13 | Outpatient (CLI) | payer OTHER, SELFPAY ==
--- NOTE | 2025-02-23 09:19 | MM_ITS ---
WS: [id number] BILATERAL 3D TOMOSYNTHESIS DIGITAL SCREENING MAMMOGRAPHY WITH CAD CLINICAL INFORMATION: SCREENING HISTORY: Screening mammogram. No current complaints. COMPARISON: 2021 TECHNIQUE: Bilateral CC and MLO views. FINDINGS: The breasts are composed of heterogeneous fibroglandular density tissue, which can limit the detection of small underlying mass lesions. Slightly spiculated asymmetric density upper outer LEFT breast. Recommend LEFT breast diagnostic mammography and ultrasound if persistent. MM/MM [facility] tomosynthesis [id number] IMPRESSION: DENSITY: The breasts are heterogeneously dense, which may obscure small masses. BI-RADS: 0 - Incomplete: Need additional imaging evaluation FOLLOW UP: Need Additional Imaging Recommend LEFT breast diagnostic mammography and ultrasound if persistent.
== END 2025-02-23 09:14 | disposition home or self-care (01) ==
LOC: RAD 09:15
PROVIDERS: PCP Family Medicine; Visit Provider Family Medicine
DX: Z12.31 Encounter for screening mammogram for malignant neoplasm of breast (principal); R92.333 Mammographic heterogeneous density, bilateral breasts; N63.21 Unspecified lump in the left breast, upper outer quadrant
CPT/HCPCS: 77063; 77067